=== PATIENT | female | born 1955 | race Caucasian/White ===

== ENCOUNTER 2018-12-12 13:24 | Outpatient (RCR) | payer BC ==
[~2018-12-12] VITALS: Ht 157.5 cm; Wt 72.6 kg
[2018-12-12 13:50] LABS: BASOPHILS % (AUTO) 0 % (0-10); EOSINOPHILS # (AUTO) 0.2 10^3/uL (0.0-0.3); EOSINOPHILS % (AUTO) 2 % (0-10); HEMATOCRIT 40 % (35-52); HEMOGLOBIN 12.5 G/DL (11.5-16.0); LYMPHOCYTES # (AUTO) 1.9 X 10^3 (1.0-4.0); LYMPHOCYTES % (AUTO) 25 % (12-44); MEAN CORPUSCULAR HEMOGLOBIN 28 PG (25-34); MEAN CORPUSCULAR HGB CONC 32 G/DL (32-36); MEAN CORPUSCULAR VOLUME 90 FL (80-99); MEAN PLATELET VOLUME 9.5 FL (7.4-10.4); MONOCYTES % (AUTO) 13 % (0-12); NEUTROPHILS # (AUTO) 4.6 X 10^3 (1.8-7.8); NEUTROPHILS % (AUTO) 61 % (42-75); PLATELET COUNT 235 10^3/uL (130-400); RED CELL DISTRIBUTION WIDTH 14.8 % (10.0-14.5); WHITE BLOOD COUNT 7.7 10^3/uL (4.3-11.0)
[2018-12-12 14:14] LABS: ALANINE AMINOTRANSFERASE 14 U/L (0-55); ALBUMIN 4.4 GM/DL (3.2-4.5); ALKALINE PHOSPHATASE 50 U/L (40-136); BILIRUBIN,TOTAL 0.3 MG/DL (0.1-1.0); BUN/CREATININE RATIO 27; CALCIUM 9.9 MG/DL (8.5-10.1); CARBON DIOXIDE 24 MMOL/L (21-32); CHLORIDE 107 MMOL/L (98-107); CREATININE SERUM 0.73 MG/DL (0.60-1.30); GFR ESTIMATED > 60; GLUCOSE 108 MG/DL (70-105); POTASSIUM 4.3 MMOL/L (3.6-5.0); SODIUM 141 MMOL/L (135-145); TOTAL PROTEIN 7.5 GM/DL (6.4-8.2)
[2018-12-12] MEDS ORDERED: PEMBROLIZUMAB 200 MG in NS (IVPB) CANCER CENTER 50 ML IV SCH (14:30)
[2018-12-12] MEDS ORDERED: NS IV 500 ML (CANCER CENTER) IV SCH (14:45)
== END 2019-01-02 13:51 | disposition home or self-care (01) ==
LOC: ONC 13:24
PROVIDERS: ATTEND Internal Medicine Hematology & Oncology
DX: Z51.11 Encounter for antineoplastic chemotherapy (principal); C18.1 Malignant neoplasm of appendix; C79.61 Secondary malignant neoplasm of right ovary; C79.62 Secondary malignant neoplasm of left ovary; C78.6 Secondary malignant neoplasm of retroperitoneum and peritoneum; I10 Essential (primary) hypertension; Z86.718 Personal history of other venous thrombosis and embolism; Z79.01 Long term (current) use of anticoagulants; Z79.899 Other long term (current) drug therapy
CPT/HCPCS: 36591; 80053; 82378; 84443; 85025; 86304; 96413; 99214

== ENCOUNTER 2019-03-27 13:43 | Outpatient (RCR) | payer BC, MEDICARE ==
[2019-01-02 14:11] LABS: BASOPHILS % (AUTO) 0 % (0-10); EOSINOPHILS # (AUTO) 0.1 10^3/uL (0.0-0.3); EOSINOPHILS % (AUTO) 2 % (0-10); HEMATOCRIT 37 % (35-52); LYMPHOCYTES # (AUTO) 1.6 X 10^3 (1.0-4.0); LYMPHOCYTES % (AUTO) 22 % (12-44); MEAN CORPUSCULAR HEMOGLOBIN 29 PG (25-34); MEAN CORPUSCULAR HGB CONC 32 G/DL (32-36); MEAN CORPUSCULAR VOLUME 90 FL (80-99); MEAN PLATELET VOLUME 9.3 FL (7.4-10.4); MONOCYTES # (AUTO) 0.7 X 10^3 (0.0-1.0); MONOCYTES % (AUTO) 10 % (0-12); NEUTROPHILS # (AUTO) 4.8 X 10^3 (1.8-7.8); NEUTROPHILS % (AUTO) 66 % (42-75); PLATELET COUNT 232 10^3/uL (130-400); RED CELL DISTRIBUTION WIDTH 14.7 % (10.0-14.5); WHITE BLOOD COUNT 7.3 10^3/uL (4.3-11.0)
[2019-01-02 14:34] LABS: ALANINE AMINOTRANSFERASE 15 U/L (0-55); ALBUMIN 4.2 GM/DL (3.2-4.5); ALKALINE PHOSPHATASE 46 U/L (40-136); BILIRUBIN,TOTAL 0.4 MG/DL (0.1-1.0); BUN/CREATININE RATIO 29; CARBON DIOXIDE 23 MMOL/L (21-32); CHLORIDE 110 MMOL/L (98-107); CREATININE SERUM 0.69 MG/DL (0.60-1.30); GFR ESTIMATED > 60; GLUCOSE 133 MG/DL (70-105); POTASSIUM 3.8 MMOL/L (3.6-5.0); SODIUM 142 MMOL/L (135-145)
[2019-01-23 13:34] LABS: BASOPHILS % (AUTO) 0 % (0-10); EOSINOPHILS # (AUTO) 0.1 10^3/uL (0.0-0.3); EOSINOPHILS % (AUTO) 2 % (0-10); HEMATOCRIT 38 % (35-52); LYMPHOCYTES # (AUTO) 1.6 X 10^3 (1.0-4.0); LYMPHOCYTES % (AUTO) 23 % (12-44); MEAN CORPUSCULAR HEMOGLOBIN 29 PG (25-34); MEAN CORPUSCULAR HGB CONC 32 G/DL (32-36); MEAN CORPUSCULAR VOLUME 90 FL (80-99); MEAN PLATELET VOLUME 9.1 FL (7.4-10.4); MONOCYTES # (AUTO) 0.9 X 10^3 (0.0-1.0); MONOCYTES % (AUTO) 12 % (0-12); NEUTROPHILS # (AUTO) 4.5 X 10^3 (1.8-7.8); NEUTROPHILS % (AUTO) 63 % (42-75); PLATELET COUNT 224 10^3/uL (130-400); RED CELL DISTRIBUTION WIDTH 14.4 % (10.0-14.5); WHITE BLOOD COUNT 7.1 10^3/uL (4.3-11.0)
[2019-01-23 13:58] LABS: ALANINE AMINOTRANSFERASE 16 U/L (0-55); ALBUMIN 4.1 GM/DL (3.2-4.5); ALKALINE PHOSPHATASE 42 U/L (40-136); BILIRUBIN,TOTAL 0.3 MG/DL (0.1-1.0); BUN/CREATININE RATIO 27; CALCIUM 9.3 MG/DL (8.5-10.1); CARBON DIOXIDE 25 MMOL/L (21-32); CHLORIDE 107 MMOL/L (98-107); CREATININE SERUM 0.77 MG/DL (0.60-1.30); GFR ESTIMATED > 60; GLUCOSE 94 MG/DL (70-105); POTASSIUM 4.2 MMOL/L (3.6-5.0); SODIUM 140 MMOL/L (135-145)
[2019-02-13 14:47] LABS: BASOPHILS % (AUTO) 0 % (0-10); EOSINOPHILS # (AUTO) 0.1 10^3/uL (0.0-0.3); EOSINOPHILS % (AUTO) 2 % (0-10); HEMATOCRIT 38 % (35-52); HEMOGLOBIN 12.3 G/DL (11.5-16.0); LYMPHOCYTES # (AUTO) 1.5 X 10^3 (1.0-4.0); LYMPHOCYTES % (AUTO) 23 % (12-44); MEAN CORPUSCULAR HEMOGLOBIN 29 PG (25-34); MEAN CORPUSCULAR HGB CONC 33 G/DL (32-36); MEAN CORPUSCULAR VOLUME 89 FL (80-99); MEAN PLATELET VOLUME 9.7 FL (7.4-10.4); MONOCYTES # (AUTO) 0.8 X 10^3 (0.0-1.0); MONOCYTES % (AUTO) 13 % (0-12); NEUTROPHILS # (AUTO) 4.2 X 10^3 (1.8-7.8); NEUTROPHILS % (AUTO) 63 % (42-75); PLATELET COUNT 239 10^3/uL (130-400); RED CELL DISTRIBUTION WIDTH 14.6 % (10.0-14.5); WHITE BLOOD COUNT 6.7 10^3/uL (4.3-11.0)
[2019-02-13 15:07] LABS: ALANINE AMINOTRANSFERASE 18 U/L (0-55); ALBUMIN 4.2 GM/DL (3.2-4.5); ALKALINE PHOSPHATASE 45 U/L (40-136); BILIRUBIN,TOTAL 0.4 MG/DL (0.1-1.0); BUN/CREATININE RATIO 28; CALCIUM 9.5 MG/DL (8.5-10.1); CARBON DIOXIDE 22 MMOL/L (21-32); CHLORIDE 108 MMOL/L (98-107); CREATININE SERUM 0.79 MG/DL (0.60-1.30); GFR ESTIMATED > 60; GLUCOSE 109 MG/DL (70-105); SODIUM 139 MMOL/L (135-145); TOTAL PROTEIN 7.2 GM/DL (6.4-8.2)
[2019-03-06 15:02] LABS: BASOPHILS % (AUTO) 0 % (0-10); EOSINOPHILS # (AUTO) 0.2 10^3/uL (0.0-0.3); EOSINOPHILS % (AUTO) 3 % (0-10); HEMATOCRIT 37 % (35-52); HEMOGLOBIN 11.9 G/DL (11.5-16.0); LYMPHOCYTES # (AUTO) 1.6 X 10^3 (1.0-4.0); LYMPHOCYTES % (AUTO) 24 % (12-44); MEAN CORPUSCULAR HEMOGLOBIN 29 PG (25-34); MEAN CORPUSCULAR HGB CONC 32 G/DL (32-36); MEAN CORPUSCULAR VOLUME 89 FL (80-99); MEAN PLATELET VOLUME 9.2 FL (7.4-10.4); MONOCYTES # (AUTO) 0.7 X 10^3 (0.0-1.0); MONOCYTES % (AUTO) 10 % (0-12); NEUTROPHILS # (AUTO) 4.3 X 10^3 (1.8-7.8); NEUTROPHILS % (AUTO) 63 % (42-75); PLATELET COUNT 245 10^3/uL (130-400); RED CELL DISTRIBUTION WIDTH 14.6 % (10.0-14.5); WHITE BLOOD COUNT 6.9 10^3/uL (4.3-11.0)
[2019-03-06 15:22] LABS: ALANINE AMINOTRANSFERASE 16 U/L (0-55); ALBUMIN 4.1 GM/DL (3.2-4.5); ALKALINE PHOSPHATASE 51 U/L (40-136); BILIRUBIN,TOTAL 0.3 MG/DL (0.1-1.0); BUN/CREATININE RATIO 24; CALCIUM 9.4 MG/DL (8.5-10.1); CARBON DIOXIDE 23 MMOL/L (21-32); CHLORIDE 110 MMOL/L (98-107); CREATININE SERUM 0.79 MG/DL (0.60-1.30); GFR ESTIMATED > 60; GLUCOSE 143 MG/DL (70-105); POTASSIUM 3.7 MMOL/L (3.6-5.0); SODIUM 141 MMOL/L (135-145); TOTAL PROTEIN 6.9 GM/DL (6.4-8.2)
[~2019-03-27] VITALS: Ht 157.5 cm; Wt 73.5 kg
[~2019-03-27 13:43] MED LIST: NS IV 500 ML (CANCER CENTER) IV SCH; PEMBROLIZUMAB 200 MG in NS (IVPB) CANCER CENTER 50 ML IV SCH
[2019-03-27 14:12] LABS: BASOPHILS % (AUTO) 0 % (0-10); EOSINOPHILS # (AUTO) 0.2 10^3/uL (0.0-0.3); EOSINOPHILS % (AUTO) 3 % (0-10); HEMATOCRIT 38 % (35-52); HEMOGLOBIN 12.3 G/DL (11.5-16.0); LYMPHOCYTES # (AUTO) 1.7 X 10^3 (1.0-4.0); LYMPHOCYTES % (AUTO) 24 % (12-44); MEAN CORPUSCULAR HEMOGLOBIN 29 PG (25-34); MEAN CORPUSCULAR HGB CONC 32 G/DL (32-36); MEAN CORPUSCULAR VOLUME 90 FL (80-99); MEAN PLATELET VOLUME 9.6 FL (7.4-10.4); MONOCYTES # (AUTO) 0.8 X 10^3 (0.0-1.0); MONOCYTES % (AUTO) 11 % (0-12); NEUTROPHILS # (AUTO) 4.6 X 10^3 (1.8-7.8); NEUTROPHILS % (AUTO) 63 % (42-75); PLATELET COUNT 252 10^3/uL (130-400); RED CELL DISTRIBUTION WIDTH 14.4 % (10.0-14.5); WHITE BLOOD COUNT 7.3 10^3/uL (4.3-11.0)
[2019-03-27 14:32] LABS: ALANINE AMINOTRANSFERASE 15 U/L (0-55); ALBUMIN 4.4 GM/DL (3.2-4.5); ALKALINE PHOSPHATASE 47 U/L (40-136); BILIRUBIN,TOTAL 0.3 MG/DL (0.1-1.0); BUN/CREATININE RATIO 24; CALCIUM 9.7 MG/DL (8.5-10.1); CARBON DIOXIDE 22 MMOL/L (21-32); CHLORIDE 107 MMOL/L (98-107); CREATININE SERUM 0.85 MG/DL (0.60-1.30); GFR ESTIMATED > 60; GLUCOSE 108 MG/DL (70-105); POTASSIUM 4.5 MMOL/L (3.6-5.0); SODIUM 140 MMOL/L (135-145); TOTAL PROTEIN 7.4 GM/DL (6.4-8.2)
== END 2019-04-02 | disposition home or self-care (01) ==
LOC: ONC 13:43
PROVIDERS: ATTEND Internal Medicine Hematology & Oncology
DX: Z51.11 Encounter for antineoplastic chemotherapy (principal); C18.1 Malignant neoplasm of appendix; C79.61 Secondary malignant neoplasm of right ovary; C79.62 Secondary malignant neoplasm of left ovary; C78.6 Secondary malignant neoplasm of retroperitoneum and peritoneum; Z86.718 Personal history of other venous thrombosis and embolism; Z79.01 Long term (current) use of anticoagulants; Z79.899 Other long term (current) drug therapy
CPT/HCPCS: 36591; 80053; 82378; 84443; 85025; 96413

== ENCOUNTER → 2019-03-27 | Outpatient (CLI) | payer BC, MEDICARE ==
--- NOTE | 2019-03-27 16:51 | Diagnostic Imaging Report ---
INDICATION: Shortness of breath. PA and lateral chest. FINDINGS: There is scoliosis of the thoracic spine convex to the right. Heart size and pulmonary vascularity are normal. Lungs are clear. There are no effusions or pneumothoraces. There is a right subclavian central line with the tip projecting over the right atrium. IMPRESSION: No acute abnormalities in the chest. Dictated by: Dictated on workstation # [id number]
== END ==
LOC: RAD 15:11
PROVIDERS: ATTEND Nurse Practitioner Adult Health
DX: R06.02 Shortness of breath (principal)
CPT/HCPCS: 71046

== ENCOUNTER → 2019-05-17 | Outpatient (CLI) | payer BC, MEDICARE ==
[~2019-05-17] MED LIST changes: +BARIUM SUSPENSION 2.1% (VANILLA SILQ) 450 ML PO ONE; +CATHETER FLUSH 10 ML SYR IV PRN; +HOLD METFORMIN - RECEIVED CONTRAST 20 ML VIAL IV SCH; +IOHEXOL 350 MG/ML 100 ML (OMNIPAQUE 350) VIAL IV ONE; +NS 100 ML (IVPB) BAG IV ONE; -NS IV 500 ML (CANCER CENTER) IV SCH; -PEMBROLIZUMAB 200 MG in NS (IVPB) CANCER CENTER 50 ML IV SCH
--- NOTE | 2019-05-17 14:43 | Diagnostic Imaging Report ---
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 TECHNIQUE: Axial imaging through the neck, chest, abdomen and pelvis was performed after the administration of intravenous contrast. COMPARISON: Patient's outside study from [facility] was only partially submitted. No axial imaging was submitted, therefore comparisons will be difficult. In addition, outside reports are not available. FINDINGS: CT neck: The visualized intracranial structures are unremarkable. The posterior nasopharynx and oropharynx are unremarkable. Parapharyngeal fat planes are preserved. The epiglottis and larynx are unremarkable. Thyroid is heterogeneous. There is hyperdense nodule in the right lobe measuring 10 mm and a hypodense nodule in left lobe 8 mm seen. The submandibular and parotid glands appear to be symmetric bilaterally. No definite cervical lymphadenopathy is seen. No fluid collections are identified. IMPRESSION: Enlarged thyroid. In comparing with patient's coronal reconstructions on prior study, this appears to be very similar to prior exam. No cervical lymphadenopathy is seen. CT chest: A right chest wall port is noted. Abnormal soft tissue left supraclavicular region is noted measuring 3.6 x 2.3 cm. This appears to have been present on prior study and is similar. No axillary lymphadenopathy is detected. No mediastinal or hilar lymphadenopathy is detected. No pericardial or pleural fluid is identified. There is some scarring or atelectasis in the lingula and left lower lobe as well as right middle lobe. No parenchymal mass is detected. IMPRESSION: Left supraclavicular soft tissue, stable when compared with outside study from 09/05/2018. No mediastinal or hilar lymphadenopathy or evidence of pulmonary metastatic disease is detected. CT abdomen and pelvis: Numerous low-density and partially calcified masses throughout the liver are again noted. There appears to have been decrease in size of all the liver lesions when compared with prior exam. The largest lesion is anteriorly in the left lobe measuring 2.3 cm transverse. This measured approximately 3.4 cm on prior exam. Numerous additional lesions also show decrease in size. Pancreas and spleen are unremarkable. No adrenal mass is identified. The kidneys are unremarkable. Aorta is not aneurysmal. Abnormal soft tissue with calcifications involving the retroperitoneum centrally is again noted. When comparing coronal reformations, this appears to be very similar. Small and large bowel loops are normal caliber. A partially calcified mass in the right abdomen medial to the ascending colon appears stable. There is no ascites. There is sigmoid diverticulosis but no evidence of acute diverticulitis. No inguinal or iliac lymphadenopathy is seen. Bladder is decompressed. Bony structures again demonstrate multiple sclerotic lesions in the lower thoracic and lumbar spine, stable when compared with prior exam. IMPRESSION: Overall significant improvement in numerous partially calcified hepatic metastases when compared with outside CT from 09/05/2018. Retroperitoneal partially calcified lymphadenopathy and right abdominal mass appear to be stable. No new abnormality is detected. Dictated by: Dictated on workstation # [id number]
== END ==
LOC: RAD 12:42
PROVIDERS: ATTEND Nurse Practitioner Adult Health
DX: Z01.89 Encounter for other specified special examinations (principal); C79.61 Secondary malignant neoplasm of right ovary; C78.6 Secondary malignant neoplasm of retroperitoneum and peritoneum; C18.1 Malignant neoplasm of appendix; C78.7 Secondary malignant neoplasm of liver and intrahepatic bile duct; R59.0 Localized enlarged lymph nodes; R19.00 Intra-abdominal and pelvic swelling, mass and lump, unspecified site
CPT/HCPCS: 70491; 71260; 74176

== ENCOUNTER 2019-07-10 13:53 | Outpatient (RCR) | payer BC, MEDICARE ==
[2019-04-17 14:25] LABS: BASOPHILS % (AUTO) 0 % (0-10); EOSINOPHILS # (AUTO) 0.2 10^3/uL (0.0-0.3); EOSINOPHILS % (AUTO) 2 % (0-10); HEMATOCRIT 37 % (35-52); HEMOGLOBIN 11.8 G/DL (11.5-16.0); LYMPHOCYTES # (AUTO) 1.6 X 10^3 (1.0-4.0); LYMPHOCYTES % (AUTO) 24 % (12-44); MEAN CORPUSCULAR HEMOGLOBIN 29 PG (25-34); MEAN CORPUSCULAR HGB CONC 32 G/DL (32-36); MEAN CORPUSCULAR VOLUME 90 FL (80-99); MEAN PLATELET VOLUME 9.3 FL (7.4-10.4); MONOCYTES # (AUTO) 0.7 X 10^3 (0.0-1.0); MONOCYTES % (AUTO) 11 % (0-12); NEUTROPHILS # (AUTO) 4.2 X 10^3 (1.8-7.8); NEUTROPHILS % (AUTO) 63 % (42-75); PLATELET COUNT 235 10^3/uL (130-400); RED CELL DISTRIBUTION WIDTH 14.4 % (10.0-14.5); WHITE BLOOD COUNT 6.7 10^3/uL (4.3-11.0)
[2019-04-17 14:42] LABS: ALANINE AMINOTRANSFERASE 15 U/L (0-55); ALBUMIN 4.3 GM/DL (3.2-4.5); ALKALINE PHOSPHATASE 48 U/L (40-136); BILIRUBIN,TOTAL 0.4 MG/DL (0.1-1.0); BUN/CREATININE RATIO 25; CALCIUM 9.8 MG/DL (8.5-10.1); CARBON DIOXIDE 25 MMOL/L (21-32); CHLORIDE 106 MMOL/L (98-107); CREATININE SERUM 0.85 MG/DL (0.60-1.30); GFR ESTIMATED > 60; GLUCOSE 114 MG/DL (70-105); POTASSIUM 3.9 MMOL/L (3.6-5.0); SODIUM 139 MMOL/L (135-145); TOTAL PROTEIN 6.9 GM/DL (6.4-8.2)
[2019-05-08 15:04] LABS: BASOPHILS % (AUTO) 0 % (0-10); EOSINOPHILS # (AUTO) 0.2 10^3/uL (0.0-0.3); EOSINOPHILS % (AUTO) 2 % (0-10); HEMATOCRIT 38 % (35-52); LYMPHOCYTES # (AUTO) 1.7 X 10^3 (1.0-4.0); LYMPHOCYTES % (AUTO) 22 % (12-44); MEAN CORPUSCULAR HEMOGLOBIN 29 PG (25-34); MEAN CORPUSCULAR HGB CONC 32 G/DL (32-36); MEAN CORPUSCULAR VOLUME 90 FL (80-99); MEAN PLATELET VOLUME 9.6 FL (7.4-10.4); MONOCYTES # (AUTO) 0.9 X 10^3 (0.0-1.0); MONOCYTES % (AUTO) 11 % (0-12); NEUTROPHILS # (AUTO) 4.9 X 10^3 (1.8-7.8); NEUTROPHILS % (AUTO) 65 % (42-75); PLATELET COUNT 224 10^3/uL (130-400); RED CELL DISTRIBUTION WIDTH 14.2 % (10.0-14.5); WHITE BLOOD COUNT 7.6 10^3/uL (4.3-11.0)
[2019-05-08 15:29] LABS: ALANINE AMINOTRANSFERASE 14 U/L (0-55); ALBUMIN 4.2 GM/DL (3.2-4.5); ALKALINE PHOSPHATASE 52 U/L (40-136); BILIRUBIN,TOTAL 0.3 MG/DL (0.1-1.0); BUN/CREATININE RATIO 28; CALCIUM 9.1 MG/DL (8.5-10.1); CARBON DIOXIDE 23 MMOL/L (21-32); CHLORIDE 109 MMOL/L (98-107); CREATININE SERUM 0.92 MG/DL (0.60-1.30); GFR ESTIMATED > 60; GLUCOSE 111 MG/DL (70-105); SODIUM 141 MMOL/L (135-145)
[2019-05-29 14:01] LABS: BASOPHILS % (AUTO) 0 % (0-10); EOSINOPHILS # (AUTO) 0.2 10^3/uL (0.0-0.3); EOSINOPHILS % (AUTO) 2 % (0-10); HEMATOCRIT 39 % (35-52); HEMOGLOBIN 12.5 G/DL (11.5-16.0); LYMPHOCYTES # (AUTO) 1.9 X 10^3 (1.0-4.0); LYMPHOCYTES % (AUTO) 27 % (12-44); MEAN CORPUSCULAR HEMOGLOBIN 29 PG (25-34); MEAN CORPUSCULAR HGB CONC 32 G/DL (32-36); MEAN CORPUSCULAR VOLUME 90 FL (80-99); MEAN PLATELET VOLUME 9.9 FL (7.4-10.4); MONOCYTES # (AUTO) 0.9 X 10^3 (0.0-1.0); MONOCYTES % (AUTO) 13 % (0-12); NEUTROPHILS # (AUTO) 4.1 X 10^3 (1.8-7.8); NEUTROPHILS % (AUTO) 58 % (42-75); PLATELET COUNT 245 10^3/uL (130-400); RED CELL DISTRIBUTION WIDTH 14.5 % (10.0-14.5)
[2019-05-29 14:23] LABS: ALANINE AMINOTRANSFERASE 17 U/L (0-55); ALBUMIN 4.4 GM/DL (3.2-4.5); ALKALINE PHOSPHATASE 70 U/L (40-136); BILIRUBIN,TOTAL 0.4 MG/DL (0.1-1.0); BUN/CREATININE RATIO 19; CALCIUM 9.3 MG/DL (8.5-10.1); CARBON DIOXIDE 20 MMOL/L (21-32); CHLORIDE 107 MMOL/L (98-107); CREATININE SERUM 0.89 MG/DL (0.60-1.30); GFR ESTIMATED > 60; GLUCOSE 89 MG/DL (70-105); SODIUM 140 MMOL/L (135-145); TOTAL PROTEIN 7.2 GM/DL (6.4-8.2)
[2019-06-19 14:16] LABS: BASOPHILS % (AUTO) 0 % (0-10); EOSINOPHILS # (AUTO) 0.2 10^3/uL (0.0-0.3); EOSINOPHILS % (AUTO) 2 % (0-10); HEMATOCRIT 38 % (35-52); LYMPHOCYTES # (AUTO) 1.5 X 10^3 (1.0-4.0); LYMPHOCYTES % (AUTO) 24 % (12-44); MEAN CORPUSCULAR HEMOGLOBIN 29 PG (25-34); MEAN CORPUSCULAR HGB CONC 32 G/DL (32-36); MEAN CORPUSCULAR VOLUME 91 FL (80-99); MEAN PLATELET VOLUME 9.7 FL (7.4-10.4); MONOCYTES # (AUTO) 0.8 X 10^3 (0.0-1.0); MONOCYTES % (AUTO) 12 % (0-12); NEUTROPHILS # (AUTO) 3.9 X 10^3 (1.8-7.8); NEUTROPHILS % (AUTO) 61 % (42-75); PLATELET COUNT 221 10^3/uL (130-400); RED CELL DISTRIBUTION WIDTH 14.2 % (10.0-14.5); WHITE BLOOD COUNT 6.3 10^3/uL (4.3-11.0)
[2019-06-19 14:38] LABS: ALANINE AMINOTRANSFERASE 17 U/L (0-55); ALKALINE PHOSPHATASE 48 U/L (40-136); BILIRUBIN,TOTAL 0.3 MG/DL (0.1-1.0); BUN/CREATININE RATIO 21; CALCIUM 8.8 MG/DL (8.5-10.1); CARBON DIOXIDE 23 MMOL/L (21-32); CHLORIDE 111 MMOL/L (98-107); CREATININE SERUM 0.63 MG/DL (0.60-1.30); GFR ESTIMATED > 60; GLUCOSE 105 MG/DL (70-105); POTASSIUM 3.8 MMOL/L (3.6-5.0); SODIUM 143 MMOL/L (135-145); TOTAL PROTEIN 6.7 GM/DL (6.4-8.2)
[~2019-07-10 13:53] MED LIST changes: -BARIUM SUSPENSION 2.1% (VANILLA SILQ) 450 ML PO ONE; -CATHETER FLUSH 10 ML SYR IV PRN; -HOLD METFORMIN - RECEIVED CONTRAST 20 ML VIAL IV SCH; -IOHEXOL 350 MG/ML 100 ML (OMNIPAQUE 350) VIAL IV ONE; -NS 100 ML (IVPB) BAG IV ONE; +NS IV 500 ML (CANCER CENTER) IV SCH; +PEMBROLIZUMAB 200 MG in NS (IVPB) CANCER CENTER 50 ML IV SCH
[2019-07-10 14:09] LABS: BASOPHILS % (AUTO) 0 % (0-10); EOSINOPHILS # (AUTO) 0.2 10^3/uL (0.0-0.3); EOSINOPHILS % (AUTO) 3 % (0-10); HEMATOCRIT 38 % (35-52); HEMOGLOBIN 12.1 G/DL (11.5-16.0); LYMPHOCYTES # (AUTO) 1.3 X 10^3 (1.0-4.0); LYMPHOCYTES % (AUTO) 20 % (12-44); MEAN CORPUSCULAR HEMOGLOBIN 29 PG (25-34); MEAN CORPUSCULAR HGB CONC 32 G/DL (32-36); MEAN CORPUSCULAR VOLUME 90 FL (80-99); MEAN PLATELET VOLUME 9.4 FL (7.4-10.4); MONOCYTES % (AUTO) 15 % (0-12); NEUTROPHILS # (AUTO) 3.9 X 10^3 (1.8-7.8); NEUTROPHILS % (AUTO) 62 % (42-75); PLATELET COUNT 241 10^3/uL (130-400); RED CELL DISTRIBUTION WIDTH 14.3 % (10.0-14.5); WHITE BLOOD COUNT 6.3 10^3/uL (4.3-11.0)
[2019-07-10 14:36] LABS: ALANINE AMINOTRANSFERASE 19 U/L (0-55); ALKALINE PHOSPHATASE 51 U/L (40-136); BILIRUBIN,TOTAL 0.5 MG/DL (0.1-1.0); BUN/CREATININE RATIO 19; CALCIUM 9.1 MG/DL (8.5-10.1); CARBON DIOXIDE 22 MMOL/L (21-32); CHLORIDE 107 MMOL/L (98-107); CREATININE SERUM 0.72 MG/DL (0.60-1.30); GFR ESTIMATED > 60; GLUCOSE 90 MG/DL (70-105); POTASSIUM 3.9 MMOL/L (3.6-5.0); SODIUM 141 MMOL/L (135-145)
== END 2019-07-16 | disposition home or self-care (01) ==
LOC: ONC 13:53
PROVIDERS: ATTEND Internal Medicine Hematology & Oncology
DX: Z51.11 Encounter for antineoplastic chemotherapy (principal); C18.1 Malignant neoplasm of appendix; C79.61 Secondary malignant neoplasm of right ovary; C79.62 Secondary malignant neoplasm of left ovary; C78.6 Secondary malignant neoplasm of retroperitoneum and peritoneum; Z86.718 Personal history of other venous thrombosis and embolism; Z79.01 Long term (current) use of anticoagulants; Z79.899 Other long term (current) drug therapy
CPT/HCPCS: 36415; 36591; 80053; 82378; 83615; 84443; 85025; 96413

== ENCOUNTER → 2019-07-24 | Outpatient (CLI) | payer BC, MEDICARE ==
--- NOTE | 2019-07-25 15:45 | Diagnostic Imaging Report ---
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 TECHNIQUE: Serum blood glucose level at time of injection was 84 g/dL. The patient was administered 13.1 mCi of F-18 FDG intravenously in the right antecubital location, and PET imaging from the top of the skull to mid thighs was performed. Noncontrast CT was also performed for attenuation correction and anatomic correlation. COMPARISON: Correlation is made with outside PET/CT from [facility] on 05/05/2015. FINDINGS: Symmetric activity throughout the brain is identified. There is diffuse activity throughout both lobes of the thyroid gland. No discrete mass is identified. No mediastinal or hilar hypermetabolism is seen. No definite pulmonary parenchymal hypermetabolism is identified. A soft tissue mass with hypermetabolism in the low hepatis region is seen with SUV maximum of approximately 9.8. This appears to be partially calcified on the CT. There is also intense hypermetabolic central retroperitoneal lymphadenopathy with SUV max of approximately 5.4. This adenopathy is also partially calcified. This has significantly increased since prior CT/PET from 05/05/2015. There was an enlarged aortocaval node on that exam that showed mild uptake. There is mild uptake involving a right iliac node with SUV of approximately 2.7. No other suspicious abnormalities are seen. IMPRESSION: Hypermetabolic lymphadenopathy in the low hepatis and central retroperitoneum consistent with metastatic disease. This has increased when compared with outside PET/CT from 05/05/2015. Dictated by: Dictated on workstation # [id number]
== END ==
LOC: RAD 07:59
PROVIDERS: ATTEND Internal Medicine Hematology & Oncology
DX: Z01.89 Encounter for other specified special examinations (principal); C18.1 Malignant neoplasm of appendix; C78.6 Secondary malignant neoplasm of retroperitoneum and peritoneum; C79.61 Secondary malignant neoplasm of right ovary; R97.0 Elevated carcinoembryonic antigen [CEA]

== ENCOUNTER 2019-10-08 14:29 | Outpatient (RCR) | payer BC, MEDICARE ==
[2019-07-31 13:29] LABS: BASOPHILS % (AUTO) 0 % (0-10); EOSINOPHILS # (AUTO) 0.1 10^3/uL (0.0-0.3); EOSINOPHILS % (AUTO) 2 % (0-10); HEMATOCRIT 37 % (35-52); HEMOGLOBIN 11.9 G/DL (11.5-16.0); LYMPHOCYTES # (AUTO) 1.6 X 10^3 (1.0-4.0); LYMPHOCYTES % (AUTO) 27 % (12-44); MEAN CORPUSCULAR HEMOGLOBIN 29 PG (25-34); MEAN CORPUSCULAR HGB CONC 32 G/DL (32-36); MEAN CORPUSCULAR VOLUME 90 FL (80-99); MEAN PLATELET VOLUME 9.4 FL (7.4-10.4); MONOCYTES # (AUTO) 0.7 X 10^3 (0.0-1.0); MONOCYTES % (AUTO) 12 % (0-12); NEUTROPHILS # (AUTO) 3.5 X 10^3 (1.8-7.8); NEUTROPHILS % (AUTO) 60 % (42-75); PLATELET COUNT 249 10^3/uL (130-400); RED CELL DISTRIBUTION WIDTH 14.1 % (10.0-14.5); WHITE BLOOD COUNT 5.8 10^3/uL (4.3-11.0)
[2019-07-31 13:45] LABS: ALANINE AMINOTRANSFERASE 13 U/L (0-55); ALBUMIN 4.1 GM/DL (3.2-4.5); ALKALINE PHOSPHATASE 41 U/L (40-136); BILIRUBIN,TOTAL 0.4 MG/DL (0.1-1.0); BUN/CREATININE RATIO 19; CALCIUM 8.9 MG/DL (8.5-10.1); CARBON DIOXIDE 23 MMOL/L (21-32); CHLORIDE 108 MMOL/L (98-107); CREATININE SERUM 0.67 MG/DL (0.60-1.30); GFR ESTIMATED > 60; GLUCOSE 115 MG/DL (70-105); POTASSIUM 3.7 MMOL/L (3.6-5.0); SODIUM 142 MMOL/L (135-145); TOTAL PROTEIN 6.9 GM/DL (6.4-8.2)
[2019-10-04 15:24] LABS: BASOPHILS % (AUTO) 0 % (0-10); EOSINOPHILS # (AUTO) 0.1 10^3/uL (0.0-0.3); EOSINOPHILS % (AUTO) 1 % (0-10); HEMATOCRIT 38 % (35-52); HEMOGLOBIN 11.9 G/DL (11.5-16.0); LYMPHOCYTES % (AUTO) 25 % (12-44); MEAN CORPUSCULAR HEMOGLOBIN 28 PG (25-34); MEAN CORPUSCULAR HGB CONC 31 G/DL (32-36); MEAN CORPUSCULAR VOLUME 90 FL (80-99); MEAN PLATELET VOLUME 9.6 FL (7.4-10.4); MONOCYTES # (AUTO) 0.7 X 10^3 (0.0-1.0); MONOCYTES % (AUTO) 9 % (0-12); NEUTROPHILS # (AUTO) 5.1 X 10^3 (1.8-7.8); NEUTROPHILS % (AUTO) 65 % (42-75); PLATELET COUNT 251 10^3/uL (130-400); RED CELL DISTRIBUTION WIDTH 14.4 % (10.0-14.5); WHITE BLOOD COUNT 7.9 10^3/uL (4.3-11.0)
[2019-10-04 15:42] LABS: ALANINE AMINOTRANSFERASE 15 U/L (0-55); ALBUMIN 4.3 GM/DL (3.2-4.5); ALKALINE PHOSPHATASE 55 U/L (40-136); BILIRUBIN,TOTAL 0.3 MG/DL (0.1-1.0); BUN/CREATININE RATIO 30; CARBON DIOXIDE 21 MMOL/L (21-32); CHLORIDE 108 MMOL/L (98-107); CREATININE SERUM 0.76 MG/DL (0.60-1.30); GFR ESTIMATED > 60; GLUCOSE 119 MG/DL (70-105); POTASSIUM 4.3 MMOL/L (3.6-5.0); SODIUM 140 MMOL/L (135-145); TOTAL PROTEIN 7.2 GM/DL (6.4-8.2)
== END 2019-10-29 | disposition home or self-care (01) ==
LOC: ONC 14:29
PROVIDERS: ATTEND Internal Medicine Hematology & Oncology
DX: Z51.11 Encounter for antineoplastic chemotherapy (principal); C18.1 Malignant neoplasm of appendix; C79.61 Secondary malignant neoplasm of right ovary; C79.62 Secondary malignant neoplasm of left ovary; C78.6 Secondary malignant neoplasm of retroperitoneum and peritoneum; M41.9 Scoliosis, unspecified; Z79.01 Long term (current) use of anticoagulants; Z79.899 Other long term (current) drug therapy; Z90.49 Acquired absence of other specified parts of digestive tract; Z86.718 Personal history of other venous thrombosis and embolism
CPT/HCPCS: 36591; 80053; 82378; 83615; 85025; 99213

== ENCOUNTER → 2020-01-28 | Outpatient (CLI) | payer BC, MEDICARE ==
[~2020-01-28] MED LIST changes: +CATHETER FLUSH 10 ML SYR IV PRN; +HOLD METFORMIN - RECEIVED CONTRAST 20 ML VIAL IV SCH; +IOHEXOL 350 MG/ML 100 ML (OMNIPAQUE 350) VIAL IV ONE; +NS 100 ML (IVPB) BAG IV ONE; -NS IV 500 ML (CANCER CENTER) IV SCH; -PEMBROLIZUMAB 200 MG in NS (IVPB) CANCER CENTER 50 ML IV SCH
--- NOTE | 2020-01-28 14:37 | Diagnostic Imaging Report ---
PROCEDURE: CT Neck, Chest Abdomen and Pelvis with contrast, Abdomen and Pelvis without. TECHNIQUE: Multiple contiguous axial images were obtained through the neck, chest, abdomen, and pelvis after the uneventful bolus administration of intravenous contrast. Precontrast acquisitions through the abdomen and pelvis were performed. Sagittal and coronal reformations are then performed. Auto Exposure Controls were utilized during the CT exam to meet ALARA standards for radiation dose reduction. INDICATION: Metastases to the peritoneal cavity. Correlation is made with prior CT from 05/17/2019. CT NECK: The posterior nasopharynx and oropharynx are unremarkable. Parapharyngeal fat planes are preserved. Thyroid gland does demonstrate a low density nodule in the left lobe, is similar to prior exam. Hyperdense nodule right lobe is stable. Submandibular and parotid glands appears symmetric bilaterally. No cervical lymphadenopathy is detected. IMPRESSION: Stable bilateral thyroid nodules. No cervical lymphadenopathy is detected. CT CHEST: A right chest wall port remains in place with tip in the right atrium. Area of soft tissue density in the left medial supraclavicular region measures 3.7 x 1.7 cm compared with 3.6 x 2.3 cm. No axillary lymphadenopathy is detected. No mediastinal or hilar lymphadenopathy is detected. No pericardial or pleural fluid is detected. Pulmonary parenchyma evaluation is without evidence for discrete mass. There is some scarring or atelectasis in the lingula. No infiltrates are seen. A sclerotic foci in the lower thoracic and lumbar spine appear stable and suggestive of osteoblastic metastatic disease. IMPRESSION: Stable CT chest when compared to exam from 05/17/2019. CT abdomen and pelvis: Numerous partially calcified as well as low-density masses throughout the liver are again noted. Marker lesion left lobe anteriorly as well as a 2.07 is compared with 2.3 cm. Lesion in the right lobe measures 1.2 cm compared with 1.5 cm. Additional lesions appear to be smaller as well. Gallbladder is unremarkable. Pancreas and spleen are unremarkable. No adrenal mass is detected. A partially calcified central retroperitoneal lymphadenopathy is again noted. Calcified mass in the region of the mid right ureter measures 3.8 x 2.5 cm compared with 3.6 x 2.2 cm. This may create some impression upon the right ureter which is slightly dilated proximally. This was not present on prior exam. Kidneys are otherwise unremarkable. Aorta is of normal caliber. Bowel loops are nonobstructed. Sigmoid diverticulosis without diverticulitis. There is no free fluid or fluid collection. No inguinal or iliac lymphadenopathy is seen. Sclerotic lesions in the lumbar spine are again noted consistent with osteoblastic metastases. IMPRESSION: 1. Overall slight decrease in size of multiple mixed low density and calcified lesions within the liver since exam from 05/17/2019. 2. Partially calcified central retroperitoneal lymphadenopathy. A right sided partially calcified mass anterior to the right psoas musculature likely and impresses upon the mid right ureter and is producing mild hydronephrosis. Uncomplicated sigmoid diverticulosis. Dictated by: Dictated on workstation # [id number]
== END ==
LOC: RAD 13:00
PROVIDERS: ATTEND Internal Medicine Hematology & Oncology
DX: C18.1 Malignant neoplasm of appendix (principal); C78.6 Secondary malignant neoplasm of retroperitoneum and peritoneum; C79.61 Secondary malignant neoplasm of right ovary; C79.62 Secondary malignant neoplasm of left ovary; K57.30 Diverticulosis of large intestine without perforation or abscess without bleeding; N13.30 Unspecified hydronephrosis
CPT/HCPCS: 70491; 71260; 74178

== ENCOUNTER 2020-01-29 14:34 | Outpatient (RCR) | payer BC, MEDICARE ==
[2019-11-01 14:06] LABS: BASOPHILS % (AUTO) 0 % (0-10); EOSINOPHILS # (AUTO) 0.1 10^3/uL (0.0-0.3); EOSINOPHILS % (AUTO) 2 % (0-10); HEMATOCRIT 38 % (35-52); HEMOGLOBIN 11.9 G/DL (11.5-16.0); LYMPHOCYTES # (AUTO) 1.7 X 10^3 (1.0-4.0); LYMPHOCYTES % (AUTO) 26 % (12-44); MEAN CORPUSCULAR HEMOGLOBIN 28 PG (25-34); MEAN CORPUSCULAR HGB CONC 31 G/DL (32-36); MEAN CORPUSCULAR VOLUME 90 FL (80-99); MEAN PLATELET VOLUME 9.5 FL (7.4-10.4); MONOCYTES # (AUTO) 0.7 X 10^3 (0.0-1.0); MONOCYTES % (AUTO) 11 % (0-12); NEUTROPHILS % (AUTO) 60 % (42-75); PLATELET COUNT 251 10^3/uL (130-400); RED CELL DISTRIBUTION WIDTH 14.4 % (10.0-14.5); WHITE BLOOD COUNT 6.6 10^3/uL (4.3-11.0)
[2019-11-01 14:27] LABS: ALANINE AMINOTRANSFERASE 15 U/L (0-55); ALBUMIN 4.1 GM/DL (3.2-4.5); ALKALINE PHOSPHATASE 52 U/L (40-136); BILIRUBIN,TOTAL 0.3 MG/DL (0.1-1.0); BUN/CREATININE RATIO 32; CALCIUM 9.4 MG/DL (8.5-10.1); CARBON DIOXIDE 20 MMOL/L (21-32); CHLORIDE 110 MMOL/L (98-107); CREATININE SERUM 0.66 MG/DL (0.60-1.30); GFR ESTIMATED > 60; GLUCOSE 101 MG/DL (70-105); POTASSIUM 4.3 MMOL/L (3.6-5.0); SODIUM 142 MMOL/L (135-145); TOTAL PROTEIN 7.2 GM/DL (6.4-8.2)
[2019-11-19 09:35] LABS: BASOPHILS % (AUTO) 0 % (0-10); EOSINOPHILS # (AUTO) 0.1 10^3/uL (0.0-0.3); EOSINOPHILS % (AUTO) 2 % (0-10); HEMATOCRIT 36 % (35-52); HEMOGLOBIN 11.4 G/DL (11.5-16.0); LYMPHOCYTES # (AUTO) 1.1 X 10^3 (1.0-4.0); LYMPHOCYTES % (AUTO) 30 % (12-44); MEAN CORPUSCULAR HEMOGLOBIN 28 PG (25-34); MEAN CORPUSCULAR HGB CONC 32 G/DL (32-36); MEAN CORPUSCULAR VOLUME 89 FL (80-99); MONOCYTES # (AUTO) 0.2 X 10^3 (0.0-1.0); MONOCYTES % (AUTO) 4 % (0-12); NEUTROPHILS # (AUTO) 2.4 X 10^3 (1.8-7.8); NEUTROPHILS % (AUTO) 64 % (42-75); PLATELET COUNT 179 10^3/uL (130-400); RED CELL DISTRIBUTION WIDTH 13.6 % (10.0-14.5); WHITE BLOOD COUNT 3.7 10^3/uL (4.3-11.0)
[2019-11-19 09:59] LABS: ALANINE AMINOTRANSFERASE 15 U/L (0-55); ALKALINE PHOSPHATASE 46 U/L (40-136); BILIRUBIN,TOTAL 0.5 MG/DL (0.1-1.0); BUN/CREATININE RATIO 23; CALCIUM 8.9 MG/DL (8.5-10.1); CARBON DIOXIDE 25 MMOL/L (21-32); CHLORIDE 110 MMOL/L (98-107); CREATININE SERUM 0.73 MG/DL (0.60-1.30); GFR ESTIMATED > 60; GLUCOSE 107 MG/DL (70-105); SODIUM 141 MMOL/L (135-145); TOTAL PROTEIN 6.8 GM/DL (6.4-8.2)
[2019-12-03 14:08] LABS: BASOPHILS % (AUTO) 0 % (0-10); EOSINOPHILS % (AUTO) 1 % (0-10); HEMATOCRIT 36 % (35-52); HEMOGLOBIN 11.4 G/DL (11.5-16.0); LYMPHOCYTES # (AUTO) 1.2 X 10^3 (1.0-4.0); LYMPHOCYTES % (AUTO) 40 % (12-44); MEAN CORPUSCULAR HEMOGLOBIN 29 PG (25-34); MEAN CORPUSCULAR HGB CONC 32 G/DL (32-36); MEAN CORPUSCULAR VOLUME 91 FL (80-99); MEAN PLATELET VOLUME 9.1 FL (7.4-10.4); MONOCYTES % (AUTO) 32 % (0-12); NEUTROPHILS # (AUTO) 0.8 X 10^3 (1.8-7.8); NEUTROPHILS % (AUTO) 27 % (42-75); PLATELET COUNT 257 10^3/uL (130-400); RED CELL DISTRIBUTION WIDTH 15.9 % (10.0-14.5); WHITE BLOOD COUNT 3.1 10^3/uL (4.3-11.0)
[2019-12-03 14:32] LABS: ALANINE AMINOTRANSFERASE 16 U/L (0-55); ALKALINE PHOSPHATASE 53 U/L (40-136); BILIRUBIN,TOTAL 0.2 MG/DL (0.1-1.0); BUN/CREATININE RATIO 21; CALCIUM 9.1 MG/DL (8.5-10.1); CARBON DIOXIDE 27 MMOL/L (21-32); CHLORIDE 107 MMOL/L (98-107); CREATININE SERUM 0.82 MG/DL (0.60-1.30); GFR ESTIMATED > 60; GLUCOSE 109 MG/DL (70-105); SODIUM 141 MMOL/L (135-145); TOTAL PROTEIN 6.9 GM/DL (6.4-8.2)
[2019-12-17 11:05] LABS: BASOPHILS % (AUTO) 0 % (0-10); EOSINOPHILS % (AUTO) 0 % (0-10); HEMATOCRIT 35 % (35-52); HEMOGLOBIN 11.1 G/DL (11.5-16.0); LYMPHOCYTES % (AUTO) 35 % (12-44); MEAN CORPUSCULAR HEMOGLOBIN 29 PG (25-34); MEAN CORPUSCULAR HGB CONC 32 G/DL (32-36); MEAN CORPUSCULAR VOLUME 90 FL (80-99); MONOCYTES # (AUTO) 0.2 X 10^3 (0.0-1.0); MONOCYTES % (AUTO) 5 % (0-12); NEUTROPHILS # (AUTO) 1.8 X 10^3 (1.8-7.8); NEUTROPHILS % (AUTO) 59 % (42-75); PLATELET COUNT 167 10^3/uL (130-400); RED CELL DISTRIBUTION WIDTH 15.5 % (10.0-14.5)
[2019-12-31 14:05] LABS: BASOPHILS % (AUTO) 0 % (0-10); EOSINOPHILS # (AUTO) 0.1 10^3/uL (0.0-0.3); EOSINOPHILS % (AUTO) 1 % (0-10); HEMATOCRIT 36 % (35-52); HEMOGLOBIN 11.3 G/DL (11.5-16.0); LYMPHOCYTES # (AUTO) 1.7 X 10^3 (1.0-4.0); LYMPHOCYTES % (AUTO) 27 % (12-44); MEAN CORPUSCULAR HEMOGLOBIN 29 PG (25-34); MEAN CORPUSCULAR HGB CONC 31 G/DL (32-36); MEAN CORPUSCULAR VOLUME 94 FL (80-99); MEAN PLATELET VOLUME 8.9 FL (7.4-10.4); MONOCYTES # (AUTO) 1.2 X 10^3 (0.0-1.0); MONOCYTES % (AUTO) 18 % (0-12); NEUTROPHILS # (AUTO) 3.5 X 10^3 (1.8-7.8); NEUTROPHILS % (AUTO) 54 % (42-75); PLATELET COUNT 358 10^3/uL (130-400); RED CELL DISTRIBUTION WIDTH 17.7 % (10.0-14.5); WHITE BLOOD COUNT 6.4 10^3/uL (4.3-11.0)
[2019-12-31 14:28] LABS: ALANINE AMINOTRANSFERASE 13 U/L (0-55); ALBUMIN 3.9 GM/DL (3.2-4.5); ALKALINE PHOSPHATASE 60 U/L (40-136); BILIRUBIN,TOTAL 0.2 MG/DL (0.1-1.0); BUN/CREATININE RATIO 19; CALCIUM 8.9 MG/DL (8.5-10.1); CARBON DIOXIDE 25 MMOL/L (21-32); CHLORIDE 106 MMOL/L (98-107); CREATININE SERUM 0.73 MG/DL (0.60-1.30); GFR ESTIMATED > 60; GLUCOSE 111 MG/DL (70-105); SODIUM 141 MMOL/L (135-145)
[2020-01-14 10:45] LABS: BASOPHILS % (AUTO) 0 % (0-10); EOSINOPHILS % (AUTO) 1 % (0-10); HEMATOCRIT 34 % (35-52); HEMOGLOBIN 10.5 G/DL (11.5-16.0); LYMPHOCYTES # (AUTO) 1.3 X 10^3 (1.0-4.0); LYMPHOCYTES % (AUTO) 27 % (12-44); MEAN CORPUSCULAR HEMOGLOBIN 29 PG (25-34); MEAN CORPUSCULAR HGB CONC 31 G/DL (32-36); MEAN CORPUSCULAR VOLUME 92 FL (80-99); MEAN PLATELET VOLUME 9.2 FL (7.4-10.4); MONOCYTES # (AUTO) 0.3 X 10^3 (0.0-1.0); MONOCYTES % (AUTO) 7 % (0-12); NEUTROPHILS # (AUTO) 3.2 X 10^3 (1.8-7.8); NEUTROPHILS % (AUTO) 66 % (42-75); PLATELET COUNT 189 10^3/uL (130-400); RED CELL DISTRIBUTION WIDTH 17.4 % (10.0-14.5); WHITE BLOOD COUNT 4.9 10^3/uL (4.3-11.0)
[2020-01-14 10:59] LABS: CHLORIDE 107 MMOL/L (98-107); POTASSIUM 3.8 MMOL/L (3.6-5.0); SODIUM 141 MMOL/L (135-145)
[2020-01-14 11:00] LABS: CALCIUM 8.6 MG/DL (8.5-10.1); GLUCOSE 101 MG/DL (70-105)
[2020-01-14 11:02] LABS: CARBON DIOXIDE 24 MMOL/L (21-32)
[2020-01-14 11:04] LABS: CREATININE SERUM 0.72 MG/DL (0.60-1.30); GFR ESTIMATED > 60
[2020-01-14 11:05] LABS: BUN/CREATININE RATIO 22
[2020-01-28 12:59] LABS: BASOPHILS % (AUTO) 0 % (0-10); EOSINOPHILS # (AUTO) 0.1 10^3/uL (0.0-0.3); EOSINOPHILS % (AUTO) 1 % (0-10); HEMATOCRIT 39 % (35-52); HEMOGLOBIN 12.2 G/DL (11.5-16.0); LYMPHOCYTES # (AUTO) 1.7 X 10^3 (1.0-4.0); LYMPHOCYTES % (AUTO) 43 % (12-44); MEAN CORPUSCULAR HEMOGLOBIN 30 PG (25-34); MEAN CORPUSCULAR HGB CONC 32 G/DL (32-36); MEAN CORPUSCULAR VOLUME 95 FL (80-99); MEAN PLATELET VOLUME 9.1 FL (7.4-10.4); MONOCYTES # (AUTO) 0.8 X 10^3 (0.0-1.0); MONOCYTES % (AUTO) 21 % (0-12); NEUTROPHILS # (AUTO) 1.3 X 10^3 (1.8-7.8); NEUTROPHILS % (AUTO) 34 % (42-75); PLATELET COUNT 324 10^3/uL (130-400); RED CELL DISTRIBUTION WIDTH 18.9 % (10.0-14.5); WHITE BLOOD COUNT 3.9 10^3/uL (4.3-11.0)
[2020-01-28 13:19] LABS: ALANINE AMINOTRANSFERASE 12 U/L (0-55); ALBUMIN 4.3 GM/DL (3.2-4.5); ALKALINE PHOSPHATASE 57 U/L (40-136); BILIRUBIN,TOTAL 0.5 MG/DL (0.1-1.0); BUN/CREATININE RATIO 14; CALCIUM 9.2 MG/DL (8.5-10.1); CARBON DIOXIDE 21 MMOL/L (21-32); CHLORIDE 109 MMOL/L (98-107); CREATININE SERUM 0.66 MG/DL (0.60-1.30); GFR ESTIMATED > 60; GLUCOSE 100 MG/DL (70-105); POTASSIUM 3.8 MMOL/L (3.6-5.0); SODIUM 142 MMOL/L (135-145); TOTAL PROTEIN 6.7 GM/DL (6.4-8.2)
== END 2020-01-30 | disposition home or self-care (01) ==
LOC: ONC 14:34
PROVIDERS: ATTEND Internal Medicine Hematology & Oncology
DX: C18.1 Malignant neoplasm of appendix (principal); C79.61 Secondary malignant neoplasm of right ovary; C79.62 Secondary malignant neoplasm of left ovary; C78.6 Secondary malignant neoplasm of retroperitoneum and peritoneum; M41.9 Scoliosis, unspecified; Z79.01 Long term (current) use of anticoagulants; Z79.899 Other long term (current) drug therapy; Z90.49 Acquired absence of other specified parts of digestive tract; Z86.718 Personal history of other venous thrombosis and embolism
CPT/HCPCS: 36591; 80048; 80053; 82378; 83615; 85025; 96365; 99213

== ENCOUNTER 2020-03-27 13:08 | Outpatient (RCR) | payer BC, MEDICARE ==
[2020-02-28 14:11] LABS: BASOPHILS % (AUTO) 0 % (0-10); EOSINOPHILS # (AUTO) 0.1 10^3/uL (0.0-0.3); EOSINOPHILS % (AUTO) 2 % (0-10); HEMATOCRIT 35 % (35-52); LYMPHOCYTES # (AUTO) 1.1 X 10^3 (1.0-4.0); LYMPHOCYTES % (AUTO) 43 % (12-44); MEAN CORPUSCULAR HEMOGLOBIN 31 PG (25-34); MEAN CORPUSCULAR HGB CONC 32 G/DL (32-36); MEAN CORPUSCULAR VOLUME 99 FL (80-99); MONOCYTES # (AUTO) 0.4 X 10^3 (0.0-1.0); MONOCYTES % (AUTO) 17 % (0-12); NEUTROPHILS % (AUTO) 38 % (42-75); PLATELET COUNT 229 10^3/uL (130-400); WHITE BLOOD COUNT 2.6 10^3/uL (4.3-11.0)
[2020-02-28 14:31] LABS: ALANINE AMINOTRANSFERASE 13 U/L (0-55); ALBUMIN 4.1 GM/DL (3.2-4.5); ALKALINE PHOSPHATASE 45 U/L (40-136); BILIRUBIN,TOTAL 0.3 MG/DL (0.1-1.0); BUN/CREATININE RATIO 21; CALCIUM 9.3 MG/DL (8.5-10.1); CARBON DIOXIDE 25 MMOL/L (21-32); CHLORIDE 108 MMOL/L (98-107); CREATININE SERUM 0.71 MG/DL (0.60-1.30); GFR ESTIMATED > 60; GLUCOSE 111 MG/DL (70-105); POTASSIUM 4.2 MMOL/L (3.6-5.0); SODIUM 142 MMOL/L (135-145); TOTAL PROTEIN 6.9 GM/DL (6.4-8.2)
[2020-03-27 13:46] LABS: BASOPHILS % (AUTO) 0 % (0-10); EOSINOPHILS # (AUTO) 0.1 10^3/uL (0.0-0.3); EOSINOPHILS % (AUTO) 3 % (0-10); HEMATOCRIT 35 % (35-52); HEMOGLOBIN 10.9 G/DL (11.5-16.0); LYMPHOCYTES # (AUTO) 1.2 X 10^3 (1.0-4.0); LYMPHOCYTES % (AUTO) 62 % (12-44); MEAN CORPUSCULAR HEMOGLOBIN 32 PG (25-34); MEAN CORPUSCULAR HGB CONC 32 G/DL (32-36); MEAN CORPUSCULAR VOLUME 102 FL (80-99); MEAN PLATELET VOLUME 8.9 FL (7.4-10.4); MONOCYTES # (AUTO) 0.4 X 10^3 (0.0-1.0); MONOCYTES % (AUTO) 19 % (0-12); NEUTROPHILS # (AUTO) 0.3 X 10^3 (1.8-7.8); NEUTROPHILS % (AUTO) 17 % (42-75); PLATELET COUNT 216 10^3/uL (130-400); RED CELL DISTRIBUTION WIDTH 15.4 % (10.0-14.5); WHITE BLOOD COUNT 1.9 10^3/uL (4.3-11.0)
[2020-03-27 14:02] LABS: ALANINE AMINOTRANSFERASE 13 U/L (0-55); ALBUMIN 4.1 GM/DL (3.2-4.5); ALKALINE PHOSPHATASE 50 U/L (40-136); BILIRUBIN,TOTAL 0.3 MG/DL (0.1-1.0); BUN/CREATININE RATIO 17; CALCIUM 8.7 MG/DL (8.5-10.1); CARBON DIOXIDE 26 MMOL/L (21-32); CHLORIDE 111 MMOL/L (98-107); CREATININE SERUM 0.83 MG/DL (0.60-1.30); GFR ESTIMATED > 60; GLUCOSE 119 MG/DL (70-105); POTASSIUM 3.9 MMOL/L (3.6-5.0); SODIUM 141 MMOL/L (135-145); TOTAL PROTEIN 6.7 GM/DL (6.4-8.2)
[2020-04-21 09:50] LABS: BASOPHILS % (AUTO) 0 % (0-10); EOSINOPHILS # (AUTO) 0.1 10^3/uL (0.0-0.3); EOSINOPHILS % (AUTO) 2 % (0-10); HEMATOCRIT 36 % (35-52); HEMOGLOBIN 11.5 G/DL (11.5-16.0); LYMPHOCYTES % (AUTO) 16 % (12-44); MEAN CORPUSCULAR HEMOGLOBIN 32 PG (25-34); MEAN CORPUSCULAR HGB CONC 32 G/DL (32-36); MEAN CORPUSCULAR VOLUME 99 FL (80-99); MONOCYTES # (AUTO) 0.6 X 10^3 (0.0-1.0); MONOCYTES % (AUTO) 11 % (0-12); NEUTROPHILS # (AUTO) 4.3 X 10^3 (1.8-7.8); NEUTROPHILS % (AUTO) 71 % (42-75); PLATELET COUNT 199 10^3/uL (130-400); RED CELL DISTRIBUTION WIDTH 14.2 % (10.0-14.5)
[2020-04-21 10:07] LABS: ALANINE AMINOTRANSFERASE 12 U/L (0-55); ALBUMIN 3.9 GM/DL (3.2-4.5); ALKALINE PHOSPHATASE 44 U/L (40-136); BILIRUBIN,TOTAL 0.4 MG/DL (0.1-1.0); BUN/CREATININE RATIO 17; CALCIUM 8.7 MG/DL (8.5-10.1); CARBON DIOXIDE 22 MMOL/L (21-32); CHLORIDE 111 MMOL/L (98-107); CREATININE SERUM 0.64 MG/DL (0.60-1.30); GFR ESTIMATED > 60; GLUCOSE 95 MG/DL (70-105); POTASSIUM 4.1 MMOL/L (3.6-5.0); SODIUM 141 MMOL/L (135-145); TOTAL PROTEIN 6.7 GM/DL (6.4-8.2)
== END 2020-04-21 09:29 | disposition home or self-care (01) ==
LOC: ONC 13:08
PROVIDERS: ATTEND Internal Medicine Hematology & Oncology
DX: C18.1 Malignant neoplasm of appendix (principal); C79.61 Secondary malignant neoplasm of right ovary; C79.62 Secondary malignant neoplasm of left ovary; C78.6 Secondary malignant neoplasm of retroperitoneum and peritoneum; M41.9 Scoliosis, unspecified; Z79.01 Long term (current) use of anticoagulants; Z79.899 Other long term (current) drug therapy; Z90.49 Acquired absence of other specified parts of digestive tract; Z86.718 Personal history of other venous thrombosis and embolism
CPT/HCPCS: 80053; 82378; 83615; 85025; G0463; 36591

== ENCOUNTER 2020-06-16 12:57 | Outpatient (RCR) | payer BC, MEDICARE, OTHER ==
[2020-05-20 09:23] LABS: BASOPHILS % (AUTO) 0 % (0-10); EOSINOPHILS # (AUTO) 0.1 10^3/uL (0.0-0.3); EOSINOPHILS % (AUTO) 2 % (0-10); HEMATOCRIT 39 % (35-52); HEMOGLOBIN 12.3 G/DL (11.5-16.0); LYMPHOCYTES # (AUTO) 1.6 X 10^3 (1.0-4.0); LYMPHOCYTES % (AUTO) 30 % (12-44); MEAN CORPUSCULAR HEMOGLOBIN 31 PG (25-34); MEAN CORPUSCULAR HGB CONC 32 G/DL (32-36); MEAN CORPUSCULAR VOLUME 97 FL (80-99); MEAN PLATELET VOLUME 9.2 FL (7.4-10.4); MONOCYTES # (AUTO) 0.7 X 10^3 (0.0-1.0); MONOCYTES % (AUTO) 13 % (0-12); NEUTROPHILS # (AUTO) 2.9 X 10^3 (1.8-7.8); NEUTROPHILS % (AUTO) 54 % (42-75); PLATELET COUNT 197 10^3/uL (130-400); WHITE BLOOD COUNT 5.3 10^3/uL (4.3-11.0)
[2020-05-20 09:45] LABS: ALANINE AMINOTRANSFERASE 12 U/L (0-55); ALBUMIN 3.9 GM/DL (3.2-4.5); ALKALINE PHOSPHATASE 45 U/L (40-136); BILIRUBIN,TOTAL 0.3 MG/DL (0.1-1.0); BUN/CREATININE RATIO 25; CALCIUM 9.6 MG/DL (8.5-10.1); CARBON DIOXIDE 25 MMOL/L (21-32); CHLORIDE 108 MMOL/L (98-107); CREATININE SERUM 0.73 MG/DL (0.60-1.30); GFR ESTIMATED > 60; GLUCOSE 124 MG/DL (70-105); POTASSIUM 3.9 MMOL/L (3.6-5.0); SODIUM 141 MMOL/L (135-145); TOTAL PROTEIN 6.7 GM/DL (6.4-8.2)
[2020-06-16 13:16] LABS: BASOPHILS % (AUTO) 0 % (0-10); EOSINOPHILS # (AUTO) 0.1 10^3/uL (0.0-0.3); EOSINOPHILS % (AUTO) 1 % (0-10); HEMATOCRIT 38 % (35-52); LYMPHOCYTES # (AUTO) 1.9 X 10^3 (1.0-4.0); LYMPHOCYTES % (AUTO) 30 % (12-44); MEAN CORPUSCULAR HEMOGLOBIN 31 PG (25-34); MEAN CORPUSCULAR HGB CONC 32 G/DL (32-36); MEAN CORPUSCULAR VOLUME 96 FL (80-99); MEAN PLATELET VOLUME 9.3 FL (7.4-10.4); MONOCYTES # (AUTO) 0.7 X 10^3 (0.0-1.0); MONOCYTES % (AUTO) 11 % (0-12); NEUTROPHILS # (AUTO) 3.7 X 10^3 (1.8-7.8); NEUTROPHILS % (AUTO) 58 % (42-75); PLATELET COUNT 191 10^3/uL (130-400); WHITE BLOOD COUNT 6.4 10^3/uL (4.3-11.0)
[2020-06-16 13:42] LABS: ALANINE AMINOTRANSFERASE 13 U/L (0-55); ALKALINE PHOSPHATASE 51 U/L (40-136); BILIRUBIN,TOTAL 0.4 MG/DL (0.1-1.0); BUN/CREATININE RATIO 24; CALCIUM 9.1 MG/DL (8.5-10.1); CARBON DIOXIDE 24 MMOL/L (21-32); CHLORIDE 107 MMOL/L (98-107); CREATININE SERUM 0.72 MG/DL (0.60-1.30); GFR ESTIMATED > 60; GLUCOSE 89 MG/DL (70-105); POTASSIUM 4.1 MMOL/L (3.6-5.0); SODIUM 141 MMOL/L (135-145); TOTAL PROTEIN 7.2 GM/DL (6.4-8.2)
== END 2020-07-20 | disposition home or self-care (01) ==
LOC: ONC 12:57
PROVIDERS: ATTEND Internal Medicine Hematology & Oncology
DX: C18.1 Malignant neoplasm of appendix (principal); C79.61 Secondary malignant neoplasm of right ovary; C79.62 Secondary malignant neoplasm of left ovary; C78.6 Secondary malignant neoplasm of retroperitoneum and peritoneum; M41.9 Scoliosis, unspecified; Z79.01 Long term (current) use of anticoagulants; Z79.899 Other long term (current) drug therapy; Z90.49 Acquired absence of other specified parts of digestive tract; Z86.718 Personal history of other venous thrombosis and embolism
CPT/HCPCS: 36591; 80053; 82378; 83615; 85025

== ENCOUNTER 2020-09-29 09:13 | Outpatient (RCR) | payer MEDICARE, OTHER ==
[2020-08-04 10:09] LABS: BASOPHILS % (AUTO) 0 % (0-10); EOSINOPHILS # (AUTO) 0.1 10^3/uL (0.0-0.3); EOSINOPHILS % (AUTO) 1 % (0-10); HEMATOCRIT 39 % (35-52); HEMOGLOBIN 12.3 g/dL (11.5-16.0); LYMPHOCYTES # (AUTO) 1.6 10^3/uL (1.0-4.0); LYMPHOCYTES % (AUTO) 38 % (12-44); MEAN CORPUSCULAR HEMOGLOBIN 30 pg (25-34); MEAN CORPUSCULAR HGB CONC 32 g/dL (32-36); MEAN CORPUSCULAR VOLUME 96 fL (80-99); MEAN PLATELET VOLUME 9.3 fL (9.0-12.2); MONOCYTES # (AUTO) 0.6 10^3/uL (0.0-1.0); MONOCYTES % (AUTO) 13 % (0-12); NEUTROPHILS % (AUTO) 48 % (42-75); PLATELET COUNT 193 10^3/uL (130-400); WHITE BLOOD COUNT 4.1 10^3/uL (4.3-11.0)
[2020-08-04 11:40] LABS: ALANINE AMINOTRANSFERASE 14 U/L (0-55); ALBUMIN 4.2 GM/DL (3.2-4.5); ALKALINE PHOSPHATASE 48 U/L (40-136); BILIRUBIN,TOTAL 0.5 MG/DL (0.1-1.0); BUN/CREATININE RATIO 24; CARBON DIOXIDE 23 MMOL/L (21-32); CHLORIDE 108 MMOL/L (98-107); CREATININE SERUM 0.76 MG/DL (0.60-1.30); GFR ESTIMATED > 60; GLUCOSE 96 MG/DL (70-105); SODIUM 141 MMOL/L (135-145); TOTAL PROTEIN 7.3 GM/DL (6.4-8.2)
[2020-09-03 13:59] LABS: BASOPHILS % (AUTO) 0 % (0-10); EOSINOPHILS % (AUTO) 1 % (0-10); HEMATOCRIT 35 % (35-52); HEMOGLOBIN 11.3 g/dL (11.5-16.0); LYMPHOCYTES # (AUTO) 1.2 10^3/uL (1.0-4.0); LYMPHOCYTES % (AUTO) 43 % (12-44); MEAN CORPUSCULAR HEMOGLOBIN 31 pg (25-34); MEAN CORPUSCULAR HGB CONC 32 g/dL (32-36); MEAN CORPUSCULAR VOLUME 95 fL (80-99); MONOCYTES # (AUTO) 0.5 10^3/uL (0.0-1.0); MONOCYTES % (AUTO) 18 % (0-12); NEUTROPHILS % (AUTO) 37 % (42-75); PLATELET COUNT 188 10^3/uL (130-400); WHITE BLOOD COUNT 2.8 10^3/uL (4.3-11.0)
[2020-09-03 14:19] LABS: ALANINE AMINOTRANSFERASE 16 U/L (0-55); ALBUMIN 3.9 GM/DL (3.2-4.5); ALKALINE PHOSPHATASE 48 U/L (40-136); BILIRUBIN,TOTAL 0.3 MG/DL (0.1-1.0); BUN/CREATININE RATIO 20; CALCIUM 9.1 MG/DL (8.5-10.1); CARBON DIOXIDE 26 MMOL/L (21-32); CHLORIDE 107 MMOL/L (98-107); CREATININE SERUM 0.84 MG/DL (0.60-1.30); GFR ESTIMATED > 60; GLUCOSE 120 MG/DL (70-105); POTASSIUM 3.6 MMOL/L (3.6-5.0); SODIUM 143 MMOL/L (135-145); TOTAL PROTEIN 6.8 GM/DL (6.4-8.2)
[2020-09-29 09:37] LABS: BASOPHILS % (AUTO) 0 % (0-10); EOSINOPHILS # (AUTO) 0.1 10^3/uL (0.0-0.3); EOSINOPHILS % (AUTO) 2 % (0-10); HEMATOCRIT 35 % (35-52); HEMOGLOBIN 11.1 g/dL (11.5-16.0); LYMPHOCYTES # (AUTO) 1.2 10^3/uL (1.0-4.0); LYMPHOCYTES % (AUTO) 43 % (12-44); MEAN CORPUSCULAR HEMOGLOBIN 31 pg (25-34); MEAN CORPUSCULAR HGB CONC 32 g/dL (32-36); MEAN CORPUSCULAR VOLUME 98 fL (80-99); MEAN PLATELET VOLUME 9.4 fL (9.0-12.2); MONOCYTES # (AUTO) 0.5 10^3/uL (0.0-1.0); MONOCYTES % (AUTO) 17 % (0-12); NEUTROPHILS # (AUTO) 1.1 10^3/uL (1.8-7.8); NEUTROPHILS % (AUTO) 39 % (42-75); PLATELET COUNT 208 10^3/uL (130-400); WHITE BLOOD COUNT 2.7 10^3/uL (4.3-11.0)
[2020-09-29 09:59] LABS: ALANINE AMINOTRANSFERASE 17 U/L (0-55); ALBUMIN 3.9 GM/DL (3.2-4.5); ALKALINE PHOSPHATASE 46 U/L (40-136); BILIRUBIN,TOTAL 0.4 MG/DL (0.1-1.0); BUN/CREATININE RATIO 22; CALCIUM 8.6 MG/DL (8.5-10.1); CARBON DIOXIDE 26 MMOL/L (21-32); CHLORIDE 109 MMOL/L (98-107); CREATININE SERUM 0.79 MG/DL (0.60-1.30); GFR ESTIMATED > 60; GLUCOSE 108 MG/DL (70-105); SODIUM 141 MMOL/L (135-145); TOTAL PROTEIN 6.9 GM/DL (6.4-8.2)
== END 2020-10-13 16:32 | disposition home or self-care (01) ==
LOC: ONC 09:13
PROVIDERS: ATTEND Internal Medicine Hematology & Oncology
DX: C18.1 Malignant neoplasm of appendix (principal); C78.6 Secondary malignant neoplasm of retroperitoneum and peritoneum; C79.61 Secondary malignant neoplasm of right ovary; Z86.718 Personal history of other venous thrombosis and embolism
CPT/HCPCS: 36591; 80053; 82378; 83615; 85025

== ENCOUNTER → 2020-12-10 | Outpatient (CLI) | payer MEDICARE, OTHER ==
[~2020-12-10] MED LIST changes: -IOHEXOL 350 MG/ML 100 ML (OMNIPAQUE 350) VIAL IV ONE; +IOHEXOL 350 MG/ML 150 ML (OMNIPAQUE 350) VIAL IV ONE
--- NOTE | 2020-12-10 12:11 | Diagnostic Imaging Report ---
PROCEDURE: CT head with and without contrast. TECHNIQUE: Multiple contiguous axial images were obtained through the brain before and after the administration of intravenous contrast. Auto Exposure Controls were utilized during the CT exam to meet ALARA standards for radiation dose reduction. INDICATION: Malignant neoplasm of the appendix. COMPARISON: No prior head CT is available for comparison. FINDINGS: The ventricles and sulci are within normal limits. No sulcal effacement or midline shift is identified. No acute intra-axial or extra-axial hemorrhage is detected. Cisterns are patent. Visualized paranasal sinuses are clear. Postcontrast portion of the exam is unremarkable. No enhancing lesion is detected. IMPRESSION: Unremarkable pre and postcontrast CT of the brain. Dictated by: Dictated on workstation # [id number]
--- NOTE | 2020-12-10 13:53 | Diagnostic Imaging Report ---
PROCEDURE: CT Neck, Chest Abdomen and Pelvis with contrast, Abdomen and Pelvis without. TECHNIQUE: Multiple contiguous axial images were obtained through the neck, chest, abdomen, and pelvis after the uneventful bolus administration of intravenous contrast. Precontrast acquisitions through the abdomen and pelvis were performed. Sagittal and coronal reformations are then performed. Auto Exposure Controls were utilized during the CT exam to meet ALARA standards for radiation dose reduction. INDICATION: Malignant neoplasm of the appendix. FINDINGS: CT neck: The visualized intracranial structures are unremarkable. Posterior nasopharynx and oropharynx are unremarkable. Parapharyngeal fat planes are preserved. Heterogeneity to the thyroid gland with small left lobe and right lobe nodules are again noted similar to prior exam. Parotid and submandibular glands are unremarkable. No cervical lymphadenopathy is detected. IMPRESSION: Stable CT neck with contrast when compared with 01/28/2020. No cervical lymphadenopathy is identified. CT chest: Right chest wall port remains in place. Previously noted area of soft tissue density in the medial left supraclavicular location is much smaller on today's study measuring 19 mm x 12 mm compared with 37 mm x 17 mm on prior. No axillary lymphadenopathy is detected. There is no pericardial or pleural fluid identified. Parenchymal evaluation again demonstrates some scarring or atelectasis in the lingula. There is some linear scarring or atelectasis in both lower lobes. No parenchymal nodule or mass is detected. IMPRESSION: Decrease in size of soft tissue density in the left supraclavicular region when compared with prior CT from 01/28/2020. No new areas of lymphadenopathy are identified. There is no evidence of pulmonary metastatic disease. CT abdomen and pelvis: Multiple low-density lesions as well as partially calcified lesions in the liver again noted. The marker lesion in left lobe is decreased in size measuring 17 mm compared with 20 mm on prior. The right lobe lesion measures 9 mm compared with 12 mm on prior. Again additional lesions appear smaller as well. No new mass is detected. Gallbladder is unremarkable. Pancreas and spleen appears stable. No adrenal mass is detected. Left kidney is unremarkable. There is continued dilatation of right renal collecting system and right ureter, likely caused by calcified mass anterior to the right psoas muscle. This mass measures 4.3 x 2.8 cm compared with 3.8 x 2.6 cm on prior. Calcified lymphadenopathy in the retroperitoneum appears similar. Aorta is nonaneurysmal. Small and large bowel loops are normal caliber. There is extensive diverticulosis of the sigmoid colon but no evidence of acute diverticulitis. Bladder is decompressed. No definite pelvic lymphadenopathy is identified. IMPRESSION: 1. Decrease in size of multiple liver lesions when compared with exam from 01/28/2020. 2. Calcified mass in the right side of retroperitoneum again obstructing the right ureter. There is significant right-sided hydronephrosis. Mass does measure similar to perhaps slightly larger when compared with prior exam. No other new abnormality in the abdomen or pelvis is identified. Dictated by: Dictated on workstation # [id number]
== END ==
LOC: RAD FS 09:57
PROVIDERS: ATTEND Nurse Practitioner Adult Health
DX: C18.1 Malignant neoplasm of appendix (principal); C79.62 Secondary malignant neoplasm of left ovary; C78.6 Secondary malignant neoplasm of retroperitoneum and peritoneum; C79.61 Secondary malignant neoplasm of right ovary; K76.9 Liver disease, unspecified; N13.30 Unspecified hydronephrosis
CPT/HCPCS: 70470; 70491; 71260; 74178

== ENCOUNTER 2020-12-22 14:19 | Emergency (ER) | payer MEDICARE, OTHER ==
[~2020-12-22] VITALS: Ht 157 cm; Wt 68.0 kg
--- NOTE | 2020-12-22 15:02 | ED General ---
General Chief Complaint: General Problems/Pain Stated Complaint: UNABLE TO EAT, TIRED Nursing Triage Note: PT PRESENTS TO ED WITH COMPLAINTS OF NAUSEA, GENERAL WEAKNESS, MALAISE X 6 WEEKS. Nursing Sepsis Screen: No Definite Risk Source of Information: Patient Exam Limitations: No Limitations (REMY MILIAN MD) History of Present Illness Date Seen by Provider: Dec 22, 2020 Time Seen by Provider: 14:55 Timing/Duration: Constant Severity: Severe Associated Systoms: Loss of Appetite, Malaise, Nausea/Vomiting, Weakness (REMY MILIAN MD) Allergies and Home Medications Allergies Coded Allergies: No Known Drug Allergies (Unverified , 12/12/18) Home Medications Promethazine HCl 25 Mg Tablet, 25 MG PO Q6H PRN for NAUSEA/VOMITING Prescribed by: REMY MILIAN on 12/22/201721 Patient Home Medication List Home Medication List Reviewed: Yes (REMY MILIAN MD) Review of Systems Review of Systems Constitutional: see HPI EENTM: no symptoms reported Respiratory: no symptoms reported Cardiovascular: no symptoms reported Gastrointestinal: loss of appetite, nausea Genitourinary: other (decreased output) Skin: no symptoms reported Psychiatric/Neurological: Weakness (generalized) (REMY MILIAN MD) Past Ompakjl-Gvbwso-Upjpuj Hx Patient Social History Alcohol Use: Denies Use Smoking Status: Never a Smoker Recent Infectious Disease Expo: No Recent Hopitalizations: No (REMY MILIAN MD) Seasonal Allergies Seasonal Allergies: No (REMY MILIAN MD) Past Medical History Surgeries: Yes (colon resection) Appendectomy, Hysterectomy Respiratory: No Cardiac: No Neurological: No Genitourinary: No Gastrointestinal: No Musculoskeletal: No Endocrine: No HEENT: No Cancer: Yes (appendix) Integumentary: No Blood Disorders: No (REMY MILIAN MD) Physical Exam Vital Signs Vital Signs - First Documented 12/22/20 14:30 Temp 36.9 Pulse 99 Resp 20 B/P (MAP) 137/79 (98) Pulse Ox 98 (JAMA ESPANA MD) Vital Signs Capillary Refill : Less Than 3 Seconds (REMY MILIAN MD) Height, Weight, BMI Height: '" Weight: lbs. oz. kg; 27.00 BMI Method: General Appearance: No Apparent Distress, Chronically ill Eyes: Bilateral Eye Normal Inspection, Bilateral Eye PERRL, Bilateral Eye EOMI HEENT: Other (dry oral mucosa) Neck: Normal Inspection, Supple Respiratory: Lungs Clear, Normal Breath Sounds, No Accessory Muscle Use, No Respiratory Distress Cardiovascular: Regular Rate, Rhythm, Normal Peripheral Pulses Gastrointestinal: Normal Bowel Sounds, Non Tender, Soft Extremity: Normal Capillary Refill, Normal Inspection, Normal Range of Motion, Non Tender Neurologic/Psychiatric: Alert, Oriented x3, No Motor/Sensory Deficits, Normal Mood/Affect Skin: Warm/Dry, Pallor, Other (poor skin turgor) (REMY MILIAN MD) Focused Exam Lactate Level 12/22/20 15:21: Lactic Acid Level 0.62 (JAMA ESPANA MD) Lactic Acid Level Laboratory Tests Test 12/22/20 15:21 Lactic Acid Level 0.62 MMOL/L (0.50-2.00) (JAMA ESPANA MD) Progress/Results/Core Measures Suspected Sepsis Recent Fever Within 48 Hours: No Infection Criteria Present: None New/Unexplained Altered Menta: No Sepsis Screen: No Definite Risk SIRS Temperature: Pulse: 99 Respiratory Rate: 20 Laboratory Tests 12/22/20 14:46: White Blood Count 10.1 Blood Pressure 137 /79 Mean: 98 12/22/20 15:21: Lactic Acid Level 0.62 Laboratory Tests 12/22/20 14:46: Creatinine 0.69, Platelet Count 383, Total Bilirubin 0.4 (REMY MILIAN MD) Results/Orders Lab Results Laboratory Tests Test 12/22/20 14:46 12/22/20 15:21 12/22/20 15:35 12/22/20 17:37 Range/Units White Blood Count 10.1 4.3-11.0 10^3/uL Red Blood Count 3.06 L 3.80-5.11 10^6/uL Hemoglobin 9.6 L 11.5-16.0 g/dL Hematocrit 30 L 35-52 % Mean Corpuscular Volume 99 80-99 fL Mean Corpuscular Hemoglobin 31 25-34 pg Mean Corpuscular Hemoglobin Concent 32 32-36 g/dL Red Cell Distribution Width 15.9 H 10.0-14.5 % Platelet Count 383 130-400 10^3/uL Mean Platelet Volume 9.1 9.0-12.2 fL Immature Granulocyte % (Auto) 2 % Neutrophils (%) (Auto) 78 H 42-75 % Lymphocytes (%) (Auto) 10 L 12-44 % Monocytes (%) (Auto) 10 0-12 % Eosinophils (%) (Auto) 1 0-10 % Basophils (%) (Auto) 0 0-10 % Neutrophils # (Auto) 7.8 1.8-7.8 10^3/uL Lymphocytes # (Auto) 1.0 1.0-4.0 10^3/uL Monocytes # (Auto) 1.0 0.0-1.0 10^3/uL Eosinophils # (Auto) 0.1 0.0-0.3 10^3/uL Basophils # (Auto) 0.0 0.0-0.1 10^3/uL Immature Granulocyte # (Auto) 0.2 H 0.0-0.1 10^3/uL Sodium Level 135 135-145 MMOL/L Potassium Level 4.0 3.6-5.0 MMOL/L Chloride Level 99 98-107 MMOL/L Carbon Dioxide Level 22 21-32 MMOL/L Anion Gap 14 5-14 MMOL/L Blood Urea Nitrogen 10 7-18 MG/DL Creatinine 0.69 0.60-1.30 MG/DL Estimat Glomerular Filtration Rate > 60 BUN/Creatinine Ratio 14 Glucose Level 87 70-105 MG/DL Calcium Level 8.4 L 8.5-10.1 MG/DL Corrected Calcium 9.2 8.5-10.1 MG/DL Magnesium Level 2.6 H 1.6-2.4 MG/DL Total Bilirubin 0.4 0.1-1.0 MG/DL Aspartate Amino Transf (AST/SGOT) 30 5-34 U/L Alanine Aminotransferase (ALT/SGPT) 20 0-55 U/L Alkaline Phosphatase 74 40-136 U/L Troponin I < 0.028 <0.028 NG/ML Total Protein 7.1 6.4-8.2 GM/DL Albumin 3.0 L 3.2-4.5 GM/DL Thyroid Stimulating Hormone (TSH) 1.54 0.35-4.94 UIU/ML Lactic Acid Level 0.62 0.50-2.00 MMOL/L Coronavirus 2019 (LOBO) Negative Negative Urine Color YELLOW Urine Clarity CLEAR Urine pH 6.0 5-9 Urine Specific [place] <=1.005 1.016-1.022 Urine Protein NEGATIVE NEGATIVE Urine Glucose (UA) NEGATIVE NEGATIVE Urine Ketones 1+ H NEGATIVE Urine Nitrite NEGATIVE NEGATIVE Urine Bilirubin NEGATIVE NEGATIVE Urine Urobilinogen 0.2 < = 1.0 MG/DL Urine Leukocyte Esterase TRACE H NEGATIVE Urine RBC (Auto) TRACE-I NEGATIVE Urine RBC 0-2 /HPF Urine WBC 5-10 H /HPF Urine Crystals PRESENT H /LPF Urine Amorphous Sediment RARE TERESITA URATES H /LPF Urine Bacteria FEW H /HPF Urine Casts NONE /LPF Urine Mucus NEGATIVE /LPF Urine Culture Indicated YES (JAMA ESPANA MD) Micro Results Microbiology 12/22/20 Urine Culture - Preliminary, Resulted Escherichia coli 12/22/20 Blood Culture - Preliminary, Resulted Escherichia coli See Comments (JAMA ESPANA MD) Vital Signs/I&O 12/22/20 12/22/20 14:30 17:35 Temp 36.9 Pulse 99 87 Resp 20 20 B/P (MAP) 137/79 (98) 110/57 Pulse Ox 98 98 (JAMA ESPANA MD) Vital Signs/I&O Capillary Refill : Less Than 3 Seconds (REMY MILIAN MD) Blood Pressure Mean: 98 Progress Note : Time: 17:18 Progress Note Patient is stating that she feels a little bit better. She has had 1 L of IV fluids. She states she feels a little bit more "awake". Her nausea is improved. She was given 12-1/2 mg of Phenergan IV. Patient is desirous of discharge at this time. I have reviewed her labs except for the urinalysis which has not been completed, all of her labs are reassuring and within normal limits. Chest x-ray is unremarkable save a little small left-sided pleural effusion. She has no clinical or objective findings concerning for sepsis. No concerning findings that would warrant a hospital admission at this time. She is coming back to the hospital tomorrow to see Dr. Calderon regarding a right kidney stent. Patient is strongly encouraged to follow-up with the cancer center. I did offer her a second liter of normal saline but the patient declines at this time and would rather be discharged. I will send a prescription of Phenergan to her home in [place] at [facility]. I have discussed all of the findings with the patient and her . She is comfortable with discharge. All questions are sought and answered. (REMY MILIAN MD) Progress Note : Time: 14:45 Progress Note Patient was contacted at this time (14:45, December 23, 2020) because a gram- negative swapnil was noted on the port culture. E. coli was also noted in the urine culture. Patient states that she is feeling a little better but still feels "out of it". I strongly recommended that she return to the emergency room for repeat evaluation as she may have a bacteremia. Patient expressed understanding and said she would "see what I can do". (JAMA ESPANA MD) Diagnostic Imaging Diagonstic Imaging: Xray Plain Films/CT/US/NM/MRI: chest Comments [facility] [place], [place] NAME: OLAF YANG [facility] REC#: [id number] PT STATUS: REG ER : 1955 PHYSICIAN: REMY MILIAN MD ADMIT DATE: 12/22/20/ER Draft Date of Exam:12/22/20 CHEST 1 VIEW, AP/PA ONLY INDICATION: sepsis COMPARISON: 03/27/2019. FINDINGS: Single frontal view of the chest demonstrates normal heart size and pulmonary vascularity. The lungs show small left basilar effusion, but are otherwise clear. There is no large effusion on the right. No pneumothorax is seen on either side. Right-sided Port-A-Cath is noted with tip in the right atrium. Osseous structures show no acute adverse interval change. IMPRESSION: 1. Small left basilar effusion. Dictated on workstation # [id number] Dict: 12/22/20 1701 Trans: 12/22/20 170 [id number] [id number] Interpreted by: MILLIE JOSUE MD Electronically signed by: (REMY MILIAN MD) Departure Impression Primary Impression: Generalized weakness Additional Impression: Nausea & vomiting Qualified Codes: R11.2 - Nausea with vomiting, unspecified Disposition: HOME, SELF-CARE Condition: Stable Departure-Patient Inst. Decision time for Depature: 17:20 (REMY MILIAN MD) Referrals: NO,LOCAL PHYSICIAN (PCP/Family) Primary Care Physician Patient Instructions: Nausea and Vomiting, Adult, Generalized Weakness (DC) Add. Discharge Instructions: Please drink plenty of fluids to stay well-hydrated. I have given you a prescription for Phenergan. This medication is used for nausea you can take it every 6 hours as needed. Continue your home daily medications otherwise. Please keep your follow-up appointments with your specialists. Return to the emergency department if you develop a fever over 100.4, have persistent vomiting, diarrhea, pain or any other emergent concerning symptoms. Scripts Promethazine HCl (Promethazine Tablet) 25 Mg Tablet 25 MG PO Q6H PRN for NAUSEA/VOMITING, #20 TAB Prov: REMY MILIAN MD 12/22/20 REMY MILIAN MD Dec 22, 2020 15:02 JAMA ESPANA MD Dec 23, 2020 14:47
[2020-12-22 15:05] LABS: BASOPHILS % (AUTO) 0 % (0-10); EOSINOPHILS # (AUTO) 0.1 10^3/uL (0.0-0.3); EOSINOPHILS % (AUTO) 1 % (0-10); HEMATOCRIT 30 % (35-52); HEMOGLOBIN 9.6 g/dL (11.5-16.0); LYMPHOCYTES % (AUTO) 10 % (12-44); MEAN CORPUSCULAR HEMOGLOBIN 31 pg (25-34); MEAN CORPUSCULAR HGB CONC 32 g/dL (32-36); MEAN CORPUSCULAR VOLUME 99 fL (80-99); MEAN PLATELET VOLUME 9.1 fL (9.0-12.2); MONOCYTES % (AUTO) 10 % (0-12); NEUTROPHILS # (AUTO) 7.8 10^3/uL (1.8-7.8); NEUTROPHILS % (AUTO) 78 % (42-75); PLATELET COUNT 383 10^3/uL (130-400); WHITE BLOOD COUNT 10.1 10^3/uL (4.3-11.0)
[2020-12-22 15:15] LABS: ALANINE AMINOTRANSFERASE 20 U/L (0-55); ALKALINE PHOSPHATASE 74 U/L (40-136); BILIRUBIN,TOTAL 0.4 MG/DL (0.1-1.0); BUN/CREATININE RATIO 14; CALCIUM 8.4 MG/DL (8.5-10.1); CARBON DIOXIDE 22 MMOL/L (21-32); CHLORIDE 99 MMOL/L (98-107); CREATININE SERUM 0.69 MG/DL (0.60-1.30); GFR ESTIMATED > 60; GLUCOSE 87 MG/DL (70-105); MAGNESIUM 2.6 MG/DL (1.6-2.4); SODIUM 135 MMOL/L (135-145); TOTAL PROTEIN 7.1 GM/DL (6.4-8.2)
[2020-12-22] MEDS ORDERED: NS IV 1000 ML 1,000 ML IV SCH (15:30)
[2020-12-22] MEDS ORDERED: PROMETHAZINE INJ 25 MG/ML (PHENERGAN) AMP IVP ONE (16:00)
--- NOTE | 2020-12-22 17:05 | Diagnostic Imaging Report ---
INDICATION: sepsis COMPARISON: 03/27/2019. FINDINGS: Single frontal view of the chest demonstrates normal heart size and pulmonary vascularity. The lungs show small left basilar effusion, but are otherwise clear. There is no large effusion on the right. No pneumothorax is seen on either side. Right-sided Port-A-Cath is noted with tip in the right atrium. Osseous structures show no acute adverse interval change. IMPRESSION: 1. Small left basilar effusion. Dictated by: Dictated on workstation # [id number]
[2020-12-22] MEDS ORDERED: PROM25TA14 PO (17:22)
[2020-12-22 17:35] VITALS: BP 110/57
[2020-12-22 17:48] LABS: BILIRUBIN,URINE NEGATIVE (NEGATIVE); CLARITY,URINE CLEAR; COLOR,URINE YELLOW; GLUCOSE, URINE (UA) NEGATIVE (NEGATIVE); KETONES,URINE 1+ (NEGATIVE); LEUKOCYTE ESTERASE ,URINE TRACE (NEGATIVE); NITRITE,URINE NEGATIVE (NEGATIVE); PROTEIN,URINE NEGATIVE (NEGATIVE)
[2020-12-22 18:00] LABS: AMORPHOUS SEDIMENT,UR RARE AMOR URATES /LPF; BACTERIA,URINE FEW /HPF; RBC,URINE 0-2 /HPF
== END 2020-12-22 17:35 | disposition home or self-care (01) ==
LOC: EDUNIT# 14:19 → ER 14:22
DX: R53.1 Weakness (principal); R11.2 Nausea with vomiting, unspecified; I10 Essential (primary) hypertension; Z20.822 Contact with and (suspected) exposure to COVID-19; Z85.038 Personal history of other malignant neoplasm of large intestine
CPT/HCPCS: 71045; 80053; 81000; 83605; 83735; 84443; 84484; 85025; 87040; 87077; 87088; 93005; 99284; U0002; 36415; 87635

== ENCOUNTER 2020-12-23 16:31 | Inpatient (IN) | payer MEDICARE, OTHER ==
[~2020-12-23] VITALS: Ht 157 cm; Wt 68.1 kg
[~2020-12-23 16:31] MED LIST changes: -CATHETER FLUSH 10 ML SYR IV PRN; -HOLD METFORMIN - RECEIVED CONTRAST 20 ML VIAL IV SCH; -IOHEXOL 350 MG/ML 150 ML (OMNIPAQUE 350) VIAL IV ONE; -NS 100 ML (IVPB) BAG IV ONE; +PROM25TA14 PO
--- NOTE | 2020-12-23 16:57 | Diagnostic Imaging Report ---
HISTORY: Sepsis. COMPARISON: 12/22/2020. TECHNIQUE: Frontal view of the chest. FINDINGS: Lung volumes are normal. There are airspace opacities in the left lung base which appear stable since the prior study. There may be a minimal left pleural effusion. There is no right effusion. There is no pneumothorax. The right Port-A-Cath is in the right atrium. The cardiac silhouette is stable in size. There is old post-traumatic deformity of the proximal right humerus. IMPRESSION: 1. Left basilar airspace opacities appear stable since the prior study, may represent atelectasis or infiltrate. There may be a minimal left pleural effusion. Dictated by: Dictated on workstation # [id number]
[2020-12-23 17:10] LABS: BASOPHILS % (AUTO) 0 % (0-10); EOSINOPHILS # (AUTO) 0.1 10^3/uL (0.0-0.3); EOSINOPHILS % (AUTO) 1 % (0-10); HEMATOCRIT 31 % (35-52); HEMOGLOBIN 9.8 g/dL (11.5-16.0); LYMPHOCYTES # (AUTO) 1.3 10^3/uL (1.0-4.0); LYMPHOCYTES % (AUTO) 11 % (12-44); MEAN CORPUSCULAR HEMOGLOBIN 32 pg (25-34); MEAN CORPUSCULAR HGB CONC 32 g/dL (32-36); MEAN CORPUSCULAR VOLUME 98 fL (80-99); MEAN PLATELET VOLUME 8.8 fL (9.0-12.2); MONOCYTES # (AUTO) 0.9 10^3/uL (0.0-1.0); MONOCYTES % (AUTO) 8 % (0-12); NEUTROPHILS # (AUTO) 9.6 10^3/uL (1.8-7.8); NEUTROPHILS % (AUTO) 79 % (42-75); PLATELET COUNT 405 10^3/uL (130-400); WHITE BLOOD COUNT 12.1 10^3/uL (4.3-11.0)
[2020-12-23 17:33] LABS: ALANINE AMINOTRANSFERASE 19 U/L (0-55); ALBUMIN 3.2 GM/DL (3.2-4.5); ALKALINE PHOSPHATASE 74 U/L (40-136); BILIRUBIN,TOTAL 0.3 MG/DL (0.1-1.0); BUN/CREATININE RATIO 12; CALCIUM 8.6 MG/DL (8.5-10.1); CARBON DIOXIDE 20 MMOL/L (21-32); CHLORIDE 100 MMOL/L (98-107); CREATININE SERUM 0.83 MG/DL (0.60-1.30); GFR ESTIMATED > 60; GLUCOSE 95 MG/DL (70-105); POTASSIUM 3.9 MMOL/L (3.6-5.0); SODIUM 137 MMOL/L (135-145); TOTAL PROTEIN 7.4 GM/DL (6.4-8.2)
[2020-12-23 17:45] LABS: INR 1.3 (0.8-1.4); PROTHROMBIN TIME PATIENT 16.9 SEC (12.2-14.7)
[2020-12-23] MEDS ORDERED: CEFEPIME INJECTION 2,000 MG in WATER (STERILE) FOR INJECTION 20 ML IV ONE (17:45)
[2020-12-23] MEDS ORDERED: LACTATED RINGERS 1,000 ML IV ONE (17:45)
--- NOTE | 2020-12-23 17:50 | ED General ---
General Chief Complaint: General Problems/Pain Stated Complaint: RE EVAL Nursing Triage Note: PT AMB TO [facility] PT HERE FOR EVAL, WAS INSTRUCTED TO COME TO ED D/T BLOOD CULTURE GROWING OUT GRAM - RODS FROM BC FROM PORT AND URINE GROWING OUT ECOLI. PT WAS SEEN IN ED YESTERDAY, PT STATES FEELING BETTER TODAY. Nursing Sepsis Screen: No Definite Risk Source of Information: Patient, Old Records Exam Limitations: No Limitations History of Present Illness Date Seen by Provider: Dec 23, 2020 Time Seen by Provider: 16:33 Initial Comments This 64-year-old woman presents to the emergency room at the direction of this ER provider. She was seen in the emergency room yesterday for weakness. A blood culture was drawn from her port which grew out a gram-negative swapnil. This seemed to correlate with the E. coli that was identified in her urine. She was advised to return to the emergency room for reevaluation. She had diarrhea and vomiting through yesterday which has improved this afternoon. She also states she feels "a little out of it". She has dysuria as well. She is afebrile. A COVID-19 test performed yesterday was negative. Unfortunately, a second blood culture was not drawn yesterday from a peripheral site. 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 Allergies and Home Medications Allergies Coded Allergies: No Known Drug Allergies (Unverified , 12/12/18) Home Medications Promethazine HCl 25 Mg Tablet, 25 MG PO Q6H PRN for NAUSEA/VOMITING Prescribed by: REMY MILIAN on 12/22/20 6403 Patient Home Medication List Home Medication List Reviewed: Yes Review of Systems Review of Systems Constitutional: see HPI, weakness EENTM: no symptoms reported Respiratory: no symptoms reported Cardiovascular: other (Tachycardia) Gastrointestinal: see HPI Genitourinary: see HPI : No Musculoskeletal: no symptoms reported Skin: no symptoms reported Psychiatric/Neurological: See HPI Hematologic/Lymphatic: No Symptoms Reported Immunological/Allergic: no symptoms reported Past Joedzmu-Zseton-Rcipqq Hx Past Med/Social Hx: Reviewed and Corrections made Patient Social History Alcohol Use: Denies Use Smoking Status: Never a Smoker Recent Infectious Disease Expo: No Recent Hopitalizations: No Seasonal Allergies Seasonal Allergies: No Past Medical History Surgeries: Yes (colon resection) Appendectomy, Hysterectomy Respiratory: No Cardiac: No Neurological: No : No Reproductive Disorders: No Genitourinary: No Gastrointestinal: No Musculoskeletal: No Endocrine: No HEENT: No Cancer: Yes (appendix) Did You Recieve Any Treatments: Yes What Type of Treatment Did You: Chemotherapy, Surgical Intervention Psychosocial: No Integumentary: No Blood Disorders: No Physical Exam-Suspected Sepsis Physical Exam Vital Signs Vital Signs - First Documented 12/23/20 12/23/20 16:39 20:00 Temp 37.1 Pulse 108 Resp 20 B/P (MAP) 126/85 (99) Pulse Ox 95 O2 Delivery Room Air Capillary Refill : Less Than 3 Seconds Blood Pressure Mean: 99 Height, Weight, BMI Height: '" Weight: lbs. oz. kg; 27.00 BMI Method: General Appearance: No Apparent Distress, WD/WN HEENT: PERRL/EOMI, Normal ENT Inspection Neck: Normal Inspection Respiratory: Lungs Clear, Normal Breath Sounds, No Accessory Muscle Use, No Respiratory Distress Cardiovascular: No Edema, No Murmur, Tachycardia Gastrointestinal: Normal Bowel Sounds, Soft; No Distended; Tenderness (Ge neralized, stated as chronic and unchanged) Extremity: Normal Inspection, No Pedal Edema Neurologic/Psychiatric: Alert, Oriented x3, No Motor/Sensory Deficits, Normal Mood/Affect, er rn II-XII Norm as Tested Skin: normal color, warm/dry Focused Exam Lactate Level 12/23/20 16:50: Lactic Acid Level 0.96 Lactic Acid Level Progress/Results/Core Measures Suspected Sepsis Recent Fever Within 48 Hours: No Infection Criteria Present: None New/Unexplained Altered Menta: No Sepsis Screen: No Definite Risk SIRS Temperature: Pulse: 108 Respiratory Rate: 20 Laboratory Tests 12/23/20 16:50: White Blood Count 12.1H 12/24/20 05:05: White Blood Count 10.9 Blood Pressure 126 /85 Mean: 99 12/23/20 16:50: Lactic Acid Level 0.96 Laboratory Tests 12/23/20 16:50: Creatinine 0.83, INR Comment 1.3, Platelet Count 405H, Total Bilirubin 0.3 12/24/20 05:05: Creatinine 0.72, Platelet Count 165 Results/Orders Lab Results Laboratory Tests Test 12/23/20 16:50 12/24/20 05:05 Range/Units White Blood Count 12.1 H 10.9 4.3-11.0 10^3/uL Red Blood Count 3.10 L 3.13 L 3.80-5.11 10^6/uL Hemoglobin 9.8 L 9.4 L 11.5-16.0 g/dL Hematocrit 31 L 29 L 35-52 % Mean Corpuscular Volume 98 94 80-99 fL Mean Corpuscular Hemoglobin 32 30 25-34 pg Mean Corpuscular Hemoglobin Concent 32 32 32-36 g/dL Red Cell Distribution Width 16.0 H 13.5 10.0-14.5 % Platelet Count 405 H 165 130-400 10^3/uL Mean Platelet Volume 8.8 L 10.6 9.0-12.2 fL Immature Granulocyte % (Auto) 2 3 % Neutrophils (%) (Auto) 79 H 71 42-75 % Lymphocytes (%) (Auto) 11 L 8 L 12-44 % Monocytes (%) (Auto) 8 12 0-12 % Eosinophils (%) (Auto) 1 5 0-10 % Basophils (%) (Auto) 0 1 0-10 % Neutrophils # (Auto) 9.6 H 7.8 1.8-7.8 10^3/uL Lymphocytes # (Auto) 1.3 0.9 L 1.0-4.0 10^3/uL Monocytes # (Auto) 0.9 1.3 H 0.0-1.0 10^3/uL Eosinophils # (Auto) 0.1 0.6 H 0.0-0.3 10^3/uL Basophils # (Auto) 0.0 0.1 0.0-0.1 10^3/uL Immature Granulocyte # (Auto) 0.2 H 0.3 H 0.0-0.1 10^3/uL Prothrombin Time 16.9 H 12.2-14.7 SEC INR Comment 1.3 0.8-1.4 Activated Partial Thromboplast Time 46 H 24-35 SEC Sodium Level 137 137 135-145 MMOL/L Potassium Level 3.9 3.2 L 3.6-5.0 MMOL/L Chloride Level 100 107 98-107 MMOL/L Carbon Dioxide Level 20 L 24 21-32 MMOL/L Anion Gap 17 H 6 5-14 MMOL/L Blood Urea Nitrogen 10 12 7-18 MG/DL Creatinine 0.83 0.72 0.60-1.30 MG/DL Estimat Glomerular Filtration Rate > 60 > 60 BUN/Creatinine Ratio 12 17 Glucose Level 95 97 70-105 MG/DL Lactic Acid Level 0.96 0.50-2.00 MMOL/L Calcium Level 8.6 8.0 L 8.5-10.1 MG/DL Corrected Calcium 9.2 8.5-10.1 MG/DL Total Bilirubin 0.3 0.1-1.0 MG/DL Aspartate Amino Transf (AST/SGOT) 28 5-34 U/L Alanine Aminotransferase (ALT/SGPT) 19 0-55 U/L Alkaline Phosphatase 74 40-136 U/L C-Reactive Protein High Sensitivity 15.57 H 4.15 H 0.00-0.50 MG/DL Total Protein 7.4 6.4-8.2 GM/DL Albumin 3.2 3.2-4.5 GM/DL Procalcitonin 0.09 <0.10 NG/ML My Orders Orders - JAMA ESPANA MD Cbc With Automated Diff (12/23/20 16:33) Comprehensive Metabolic Panel (12/23/20 16:33) Blood Culture (12/23/20 16:33) Sputum Culture (12/23/20 16:33) Protime With Inr (12/23/20 16:33) Partial Thromboplastin Time (12/23/20 16:33) Chest 1 View, Ap/Pa Only (12/23/20 16:33) Ed Iv/Invasive Line Start (12/23/20 16:33) Vital Signs Adult Sepsis Patie Q15M (12/23/20 16:33) Remove Rings In Anticipation O (12/23/20 16:33) Lactic Acid Analyzer (12/23/20 16:33) Hs C Reactive Protein (12/23/20 16:33) Procalcitonin (Pct) (12/23/20 16:33) Cefepime Injection (Maxipime Injection) (12/23/20 17:45) Lactated Ringers (Lr 1000 Ml Iv Solution (12/23/20 17:45) Vital Signs/I&O 12/23/20 12/23/20 12/23/20 12/23/20 18:31 18:40 19:47 20:00 Temp 36.3 Pulse 101 106 106 Resp 18 16 B/P (MAP) 122/83 (99) 148/69 (95) Pulse Ox 95 96 95 O2 Delivery Room Air 12/23/20 12/24/20 23:47 04:23 Temp 36.8 36.3 Pulse 86 85 Resp 18 18 B/P (MAP) 101/55 (70) 95/58 (70) Pulse Ox 96 94 O2 Delivery Room Air Room Air Capillary Refill : Less Than 3 Seconds Blood Pressure Mean: 99 Progress Note : Time: 17:50 Progress Note Unfortunately, patient is tachycardic and white count has elevated. CRP is also significantly elevated. Patient meets criteria for sepsis. A new set of blood cultures was acquired. She is being treated initially with IV fluids and cefepime. She will be admitted to Dr. Elizondo's service. Dr. Elizondo accepts the admission. I discussed CODE STATUS with the patient and she requests a DNR order. Diagnostic Imaging Diagonstic Imaging: Xray Plain Films/CT/US/NM/MRI: chest Comments NAME: OLAF YANG [facility] REC#: [id number] PT STATUS: REG ER : 1955 PHYSICIAN: JAMA ESPANA MD ADMIT DATE: 12/23/20/ER Signed Date of Exam:12/23/20 CHEST 1 VIEW, AP/PA ONLY HISTORY: Sepsis. COMPARISON: 12/22/2020. TECHNIQUE: Frontal view of the chest. FINDINGS: Lung volumes are normal. There are airspace opacities in the left lung base which appear stable since the prior study. There may be a minimal left pleural effusion. There is no right effusion. There is no pneumothorax. The right Port-A-Cath is in the right atrium. The cardiac silhouette is stable in size. There is old post-traumatic deformity of the proximal right humerus. IMPRESSION: 1. Left basilar airspace opacities appear stable since the prior study, may represent atelectasis or infiltrate. There may be a minimal left pleural effusion. Dictated by: Dictated on workstation # [id number] Dict: 12/23/20 1653 Trans: 12/23/20 170 AS6 [id number] Interpreted by: ANA DUMONT MD Electronically signed by: NAA DUMONT MD 12/23/20 1702 Departure Communication (Admissions) Time/Spoke to Admitting Phy: 17:40 Dr. Elizondo Impression Primary Impression: Sepsis Qualified Codes: A41.51 - Sepsis due to Escherichia coli [e. coli] Additional Impression: Urinary tract infection Qualified Codes: N39.0 - Urinary tract infection, site not specified Disposition: ADMITTED INPATIENT Condition: Improved Admissions Decision to Admit Reason: Admit from ER (General) Decision to Admit/Date: Dec 23, 2020 Time/Decision to Admit Time: 17:52 Departure-Patient Inst. Referrals: NO,LOCAL PHYSICIAN (PCP/Family) Primary Care Physician JAMA ESPANA MD Dec 23, 2020 17:50
[2020-12-23 18:40] VITALS: BP 148/69
[2020-12-23] MEDS ORDERED: HYDROcodone/APAP 5 MG/325 MG (LORTAB) TAB PO PRN (19:15)
[2020-12-23] MEDS ORDERED: VANCOMYCIN 1250 MG/NS 250 ML IVPB IV NR ×2 (20:00)
[2020-12-23] MEDS ORDERED: VANCOMYCIN 1500 MG/NS 500 ML IVPB IV NR ×2 (20:00)
[2020-12-23] MEDS ORDERED: MELATONIN 3 MG TABLET PO PRN (20:30)
[2020-12-23] MEDS ORDERED: CALCIUM CARBONATE 500 MG (TUMS) TAB.CHEW PO PRN (20:30)
[2020-12-23] MEDS ORDERED: DOCUSATE SODIUM 100 MG (COLACE) CAP PO PRN (20:30)
[2020-12-23] MEDS ORDERED: ALPRAZolam 0.25 MG (XANAX) TAB PO PRN (20:30)
[2020-12-23] MEDS ORDERED: ONDANSETRON 4 MG/2 ML (SDV) Z0FRAN IVP PRN (20:30)
[2020-12-23] MEDS ORDERED: diphenhydrAMINE 25 MG TAB (BENADRYL) PO PRN (20:30)
[2020-12-23] MEDS ORDERED: ENOXAPARIN 40 MG/0.4 ML (LOVENOX) SYR SC SCH (20:30)
[2020-12-23] MEDS ORDERED: ACETAMINOPHEN 500 MG TAB (TYLENOL) PO PRN (20:30)
[2020-12-23] MEDS ORDERED: oxyCODONE/APAP 5/325MG (PERCOCET 5) TABLET ONE (20:44)
[2020-12-23] MEDS: oxyCODONE/APAP 5/325MG (PERCOCET 5) TABLET PO PRN (20:52)
[2020-12-23] MEDS: LACTATED RINGERS 1,000 ML IV SCH (20:53)
[2020-12-23] MEDS ORDERED: ENOXAPARIN 40 MG/0.4 ML (LOVENOX) SYR ONE (21:10)
[2020-12-23] MEDS: SENNA W/DOCUSATE (SENOKOT S) TABLET PO SCH (21:11)
[2020-12-23 23:47] VITALS: BP 101/55
[2020-12-24] MEDS: CEFEPIME 1,000 MG/SWFI 10 ML IV PUSH IV SCH ×10 (00:15→23:32)
[2020-12-24] MEDS: oxyCODONE/APAP 5/325MG (PERCOCET 5) TABLET PO PRN ×5 (00:54→20:58)
[2020-12-24 04:23] VITALS: BP 95/58
[2020-12-24 05:21] LABS: BASOPHILS # (AUTO) 0.1 10^3/uL (0.0-0.1); BASOPHILS % (AUTO) 1 % (0-10); EOSINOPHILS # (AUTO) 0.6 10^3/uL (0.0-0.3); EOSINOPHILS % (AUTO) 5 % (0-10); HEMATOCRIT 29 % (35-52); HEMOGLOBIN 9.4 g/dL (11.5-16.0); LYMPHOCYTES # (AUTO) 0.9 10^3/uL (1.0-4.0); LYMPHOCYTES % (AUTO) 8 % (12-44); MEAN CORPUSCULAR HEMOGLOBIN 30 pg (25-34); MEAN CORPUSCULAR HGB CONC 32 g/dL (32-36); MEAN CORPUSCULAR VOLUME 94 fL (80-99); MEAN PLATELET VOLUME 10.6 fL (9.0-12.2); MONOCYTES # (AUTO) 1.3 10^3/uL (0.0-1.0); MONOCYTES % (AUTO) 12 % (0-12); NEUTROPHILS # (AUTO) 7.8 10^3/uL (1.8-7.8); NEUTROPHILS % (AUTO) 71 % (42-75); PLATELET COUNT 165 10^3/uL (130-400); WHITE BLOOD COUNT 10.9 10^3/uL (4.3-11.0)
[2020-12-24 05:29] LABS: CHLORIDE 107 MMOL/L (98-107); POTASSIUM 3.2 MMOL/L (3.6-5.0); SODIUM 137 MMOL/L (135-145)
[2020-12-24 05:31] LABS: GLUCOSE 97 MG/DL (70-105)
[2020-12-24 05:32] LABS: CARBON DIOXIDE 24 MMOL/L (21-32)
[2020-12-24 05:35] LABS: CREATININE SERUM 0.72 MG/DL (0.60-1.30); GFR ESTIMATED > 60
[2020-12-24 05:36] LABS: BUN/CREATININE RATIO 17
[2020-12-24] MEDS: LACTATED RINGERS 1,000 ML IV SCH ×2 (06:51→08:34)
[2020-12-24 08:00] VITALS: BP 103/62
[2020-12-24] MEDS: KCL 20 MEQ TAB (K-DUR) PO SCH ×2 (08:32→17:17)
[2020-12-24] MEDS: SENNA W/DOCUSATE (SENOKOT S) TABLET PO SCH ×2 (08:37→21:03)
[2020-12-24] MEDS ORDERED: OXYC1TAB11 PO (10:38)
[2020-12-24] MEDS ORDERED: RIVA10TA PO (10:38)
[2020-12-24] MEDS ORDERED: ONDA8TAB15 PO (10:38)
[2020-12-24 12:00] VITALS: BP 91/49
--- NOTE | 2020-12-24 13:15 | History & Physical-Hospitalist ---
TALHA RAMIREZ [facility] 12/24/20 1315: History of Present Illness HPI/Chief Complaint Nayeli is a 64 y/o female that was admitted due to positive blood cultures from her ER visit on 12/22. This blood culture was drawn from her port where she is receiving chemo for a PMH of bowel/appendix cancer. She has had the port for 9 years. Additionally, her urine was positive for an infection and is a known patient of Dr. Escamilla. Prior to her arrival she had N/V, diarrhea and was not feeling good. Today, she is sitting up in bed and feeling nausea after trying to eat breakfast. Her vitals are stable. Labs are stable. She has mild dysuria but denies incomplete emptying.. Denies SOB, Chest pain, F/C and abdominal pain at this time. She has not had a BM since admission. We discussed having Dr. Pastrana on to look at her port and Dr. Cardoso who has been managing her care and chemo.. Source: patient Exam Limitations: no limitations Date Seen 12/24/20 Attending Physician Ismael Weaver DO PCP No,Local Physician Referring Physician Date of Admission Dec 23, 2020 at 17:47 Home Medications & Allergies Home Medications Reviewed patient Home Medication Reconciliation performed by pharmacy medication reconciliations fuel verification technician and/or nursing. Patients Allergies have been reviewed. Allergies Allergies Coded Allergies No Known Drug Allergies (Unverified12/12/18) Past Jseoutr-Opilxd-Eyloft Hx Past Med/Social Hx: Reviewed and Corrections made Patient Social History Alcohol Use: Denies Use Recreational Drug Use: No Smoking Status: Never a Smoker Recent Foreign Travel: No Contact w/other who traveled: No Recent Hopitalizations: No Recent Infectious Disease Expo: No Seasonal Allergies Seasonal Allergies: No Past Medical History Surgeries: Appendectomy, Hysterectomy : No Reproductive: No Did You Recieve Any Treatments: Yes What Type of Treatment Did You: Chemotherapy, Surgical Intervention History of Blood Disorders: No Review of Systems Constitutional: No chills, No fever EENTM: no symptoms reported Respiratory: no symptoms reported Cardiovascular: no symptoms reported Gastrointestinal: no symptoms reported Genitourinary: No decreased output; dysuria; No hematuria Musculoskeletal: no symptoms reported Skin: no symptoms reported Psychiatric/Neurological: No Symptoms Reported Physical Exam Physical Exam Vital Signs Vital Signs - First Documented 12/23/20 12/23/20 16:39 20:00 Temp 37.1 Pulse 108 Resp 20 B/P (MAP) 126/85 (99) Pulse Ox 95 O2 Delivery Room Air Capillary Refill : Less Than 3 Seconds Height, Weight, BMI Height: '" Weight: lbs. oz. kg; 27.50 BMI Method: General Appearance: Mild Distress HEENT: PERRL/EOMI Neck: Non Tender, Supple Respiratory: Chest Non Tender, No Accessory Muscle Use, No Respiratory Distress Cardiovascular: Regular Rate, Rhythm, No Edema, Normal Peripheral Pulses Gastrointestinal: Normal Bowel Sounds, Non Tender, Soft Extremity: Normal Capillary Refill, No Calf Tenderness Neurologic/Psychiatric: Alert, Oriented x3, machine tool rebuilder II-XII Norm as Tested Skin: Normal Color, Warm/Dry Lymphatic: No Adenopathy Results Results/Procedures Labs Laboratory Tests 12/23/20 16:50 12/24/20 05:05 Patient resulted labs reviewed. Assessment/Plan Admission Diagnosis 1. Urinary tract infection - continue abx 2. Sepsis - continue LR IV fluids and Abx 3. Bowel/Appendix cancer - consulted Dr. Cardoso 4. Nausea and vomiting - Zofran 5. Hypokalemia - 20meq BID with Meals - LR fluids Plan 12/24 - consulted Oncology and General surg. Appreciate recs - Redraw on blood cx, pending. - Continue abx of cefepime and vancomycin - DVT prophylaxis - monitor labs ISMAEL WEAVER DO 12/25/20 0552: History of Present Illness HPI/Chief Complaint CC: Unwell HPI: This is a 64yoWF clinic Pt of [facility] and Dr. Cardoso who treats her for appe ndix carcinoma, nine years ago who presents to the ER not feeling well and UA and blood cultures from the ER visit the day before showed E. Coli, only one set was obtained and it was obtained from the port so will need to evaluate the possibility of changing the port site. Pt was placed on Cefepime and Vancomycin empirically. Lovenox maintained for DVT prophylaxis and IV fluids are maintained. Iron ordered but pending at this current time and replacing potassium since it is 3.2. Source: patient Exam Limitations: no limitations Time Seen by a Provider: 11:00 Past Uizggap-Crinar-Nuptwu Hx Past Med/Social Hx: Reviewed Nursing Past Med/Soc Hx, Reviewed and Corrections made Patient Social History Marrital Status: Employed/Student: unemployed Alcohol Use: Denies Use Smoking Status: Never a Smoker Past Medical History Surgeries: Abdominal Cancer: Colon Did You Recieve Any Treatments: Yes Review of Systems Constitutional: see HPI, malaise, weakness Physical Exam Physical Exam General Appearance: No Apparent Distress, Chronically ill Eyes: Right Eye Normal Inspection, Right Eye PERRL HEENT: PERRL/EOMI, Normal ENT Inspection, Pharynx Normal, Moist Mucous Membranes Neck: Full Range of Motion, Normal Inspection, Non Tender Respiratory: Chest Non Tender, Lungs Clear, Normal Breath Sounds, No Accessory Muscle Use, No Respiratory Distress Cardiovascular: Regular Rate, Rhythm, No Edema, No Gallop, No JVD, No Murmur, Normal Peripheral Pulses Gastrointestinal: Normal Bowel Sounds, No Organomegaly, No Pulsatile Mass, Non Tender, Soft Back: Normal Inspection, No CVA Tenderness, No Vertebral Tenderness Extremity: Normal Capillary Refill, Normal Inspection, Normal Range of Motion, Non Tender, No Calf Tenderness, No Pedal Edema Neurologic/Psychiatric: Alert, Oriented x3, No Motor/Sensory Deficits, Depressed Affect Skin: Normal Color, Warm/Dry Lymphatic: No Adenopathy Assessment/Plan Admission Diagnosis Assessment: Sepsis Bacteremia UTI Obstruction of ureter needs stent Tuesday Admission Status: Inpatient Order (span 2 midnights) Reason for Inpatient Admission: sepsis Diagnosis/Problems Diagnosis/Problems (1) Ureter obstruction (2) Appendix carcinoma (3) Sepsis Status: Acute Qualifiers: Sepsis type: Escherichia coli Sepsis acute organ dysfunction status: without acute organ dysfunction Qualified Codes: A41.51 - Sepsis due to Escherichia coli [e. coli] (4) Urinary tract infection Status: Acute Qualifiers: Urinary tract infection type: site unspecified Hematuria presence: without hematuria Qualified Codes: N39.0 - Urinary tract infection, site not specified (5) Nausea & vomiting Status: Acute (6) Generalized weakness Status: Acute Supervisory-Addendum Brief Verification & Attestation Participated in pt care: history, MDM, physical Personally performed: exam, history, MDM, supervision of care Care discussed with: Medical Student Procedures: n/a Results interpretation: Verified all documentation Verification and Attestation of Medical Student E/M Service A medical student performed and documented this service in my presence. I reviewed and verified all information documented by the medical student and made modifications to such information, when appropriate. I personally performed the physical exam and medical decision making. Ismael Weaver, Dec 25, 2020,05:52 TALHA RAMIREZ [facility] Dec 24, 2020 13:15 ISMAEL WEAVER DO Dec 25, 2020 05:52
--- NOTE | 2020-12-24 13:24 | Consultation - Surgery ---
NICHOLASBISI MED STUDENT 12/24/20 1324: History of Present Illness History of Present Illness Patient Consulted On(ava/time) 12/24/20 13:18 Date Seen by Provider: Dec 24, 2020 Time Seen by Provider: 13:10 History of Present Illness Patient is awake and sitting up in bed. States she was in the ER two days ago for some weakness and was told to come back yesterday due to suspicion of sepsis. She had blood cultures positive for gram - swapnil, she also had a positive urine culture for E.coli that is the possible source. She had previous diarrhea and vomiting, states that she hasn't thrown up since yesterday. She does complain of some dysuria which she says is common for her when she gets a UTI, states she gets them often because of her cancer medication. 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 She states she has been feeling unwell for about 2 months now. States she has pain in the R kidney and back area, probably about a 6. Radiates throughout the LRQ. Says the pain is sharp in the front, dull in the back. Says overtime the pain gets worse. The only thing that helps is pain pills. She last ate this morning and had some nausea w/o vomiting with food. LBM yesterday. She denies any blood or pain with defecation. Complains of disuria but denies hematuria. She has not done any PT but is able to ambulate herself. Her diagnosis of cancer was about 9 years ago. She has a port that is possibly contaminated that was also placed about 9 years ago. She states is has not given her any problems in the past years. Blood cultures drawn yesterday show no sepsis, no E.coli found from port. Allergies and Home Medications Allergies Coded Allergies: No Known Drug Allergies (Unverified , 12/12/18) Home Medications Ondansetron HCl 8 Mg Tablet, 8 MG PO Q8H PRN for NAUSEA/VOMITING-1ST LINE, (Reported) Oxycodone HCl/Acetaminophen 1 Each Tablet, 1 EA PO Q4 -6H PRN for PAIN-MODERATE (5-7), (Reported) Rivaroxaban 10 Mg Tablet, 10 MG PO DAILY, (Reported) Patient Home Medication List Home Medication List Reviewed: Yes Past Gabcorq-Cadfyt-Possut Hx Patient Social History Smoking Status: Never a Smoker Recent Hopitalizations: No Physical Abuse Screen: No Alcohol Use?: No Have you traveled recently?: No Seasonal Allergies Seasonal Allergies: No Surgeries History of Surgeries: Yes (colon resection) Surgeries: Appendectomy, Bowel Surgery (Hemicolectomy), Hysterectomy Respiratory History of Respiratory Disorde: No Cardiovascular History of Cardiac Disorders: No Neurological History of Neurological Disord: No Reproductive System : No Hx Reproductive Disorders: No Genitourinary History of Genitourinary Disor: Yes Genitourinary Disorders: UTI-Chronic (from cancer medications per pt. ) Gastrointestinal History of Gastrointestinal Di: No Musculoskeletal History of Musculoskeletal Dis: No Endocrine History of Endocrine Disorders: No HEENT History of HEENT Disorders: No Cancer History of Cancer: Yes (appendix) Cancer: Colon (Colon and appendix) Psychosocial History of Psychiatric Problem: No Integumentary History of Skin or Integumenta: No Blood Transfusions History of Blood Disorders: No Family Medical History Significant Family History: Cancer (Kidney-Mother), Diabetes (Father) Review of Systems-General Constitutional: No chills, No fever Respiratory: No cough; short of breath (Chronic); No wheezing Cardiovascular: No chest pain, No edema, No palpitations Gastrointestinal: abdominal pain (RLQ); No constipation, No diarrhea, No dysphagia, No melena; nausea, vomiting (Last emesis Yesterday) Genitourinary: dysuria; No hematuria Musculoskeletal: No joint pain Skin: No rash Psychiatric/Neurological: Denies Headache Physical Exam-General Problems Physical Exam Vital Signs Vital Signs - First Documented 12/23/20 12/23/20 16:39 20:00 Temp 37.1 Pulse 108 Resp 20 B/P (MAP) 126/85 (99) Pulse Ox 95 O2 Delivery Room Air Capillary Refill : Less Than 3 Seconds General Appearance: WD/WN, no apparent distress Respiratory: chest non-tender, lungs clear, normal breath sounds, no respiratory distress, no accessory muscle use Cardiovascular: regular rate, rhythm, no edema, no murmur Peripheral Pulses: 2+ Radial Pulses (R), 2+ Radial Pulses (L) Gastrointestinal: normal bowel sounds, soft, tenderness (w/ palpation RLQ, mild) Rectal: deferred Extremities: no pedal edema, no calf tenderness Neurologic/Psychiatric: alert, normal mood/affect, oriented x 3 Skin: normal color, warm/dry Data Review Labs Laboratory Tests 12/23/20 16:50: White Blood Count 12.1H, Red Blood Count 3.10L, Hemoglobin 9.8L, Hematocrit 31L, Mean Corpuscular Volume 98, Mean Corpuscular Hemoglobin 32, Mean Corpuscular Hemoglobin Concent 32, Red Cell Distribution Width 16.0H, Platelet Count 405H, Mean Platelet Volume 8.8L, Immature Granulocyte % (Auto) 2, Neutrophils (%) (Auto) 79H, Lymphocytes (%) (Auto) 11L, Monocytes (%) (Auto) 8, Eosinophils (%) (Auto) 1, Basophils (%) (Auto) 0, Neutrophils # (Auto) 9.6H, Lymphocytes # (Auto) 1.3, Monocytes # (Auto) 0.9, Eosinophils # (Auto) 0.1, Basophils # (Auto) 0.0, Immature Granulocyte # (Auto) 0.2H, Prothrombin Time 16.9H, INR Comment 1.3, Activated Partial Thromboplast Time 46H, Sodium Level 137, Potassium Level 3.9, Chloride Level 100, Carbon Dioxide Level 20L, Anion Gap 17H, Blood Urea Nitrogen 10, Creatinine 0.83, Estimat Glomerular Filtration Rate > 60, BUN/Creatinine Ratio 12, Glucose Level 95, Lactic Acid Level 0.96, Calcium Level 8.6, Corrected Calcium 9.2, Total Bilirubin 0.3, Aspartate Amino Transf (AST/SGOT) 28, Alanine Aminotransferase (ALT/SGPT) 19, Alkaline Phosphatase 74, C-Reactive Protein High Sensitivity 15.57H, Total Protein 7.4, Albumin 3.2, Procalcitonin 0.09 12/24/20 05:05: White Blood Count 10.9, Red Blood Count 3.13L, Hemoglobin 9.4L, Hematocrit 29L, Mean Corpuscular Volume 94, Mean Corpuscular Hemoglobin 30, Mean Corpuscular Hemoglobin Concent 32, Red Cell Distribution Width 13.5, Platelet Count 165, Mean Platelet Volume 10.6, Immature Granulocyte % (Auto) 3, Neutrophils (%) (Auto) 71, Lymphocytes (%) (Auto) 8L, Monocytes (%) (Auto) 12, Eosinophils (%) (Auto) 5, Basophils (%) (Auto) 1, Neutrophils # (Auto) 7.8, Lymphocytes # (Auto) 0.9L, Monocytes # (Auto) 1.3H, Eosinophils # (Auto) 0.6H, Basophils # (Auto) 0.1, Immature Granulocyte # (Auto) 0.3H, Sodium Level 137, Potassium Level 3.2L, Chloride Level 107, Carbon Dioxide Level 24, Anion Gap 6, Blood Urea Nitrogen 12, Creatinine 0.72, Estimat Glomerular Filtration Rate > 60, BUN/Creatinine Ratio 17, Glucose Level 97, Calcium Level 8.0L, C-Reactive Protein High Sensitiv ity 4.15H Radiology Date of Exam:12/23/20 CHEST 1 VIEW, AP/PA ONLY HISTORY: Sepsis. COMPARISON: 12/22/2020. TECHNIQUE: Frontal view of the chest. FINDINGS: Lung volumes are normal. There are airspace opacities in the left lung base which appear stable since the prior study. There may be a minimal left pleural effusion. There is no right effusion. There is no pneumothorax. The right Port-A-Cath is in the right atrium. The cardiac silhouette is stable in size. There is old post-traumatic deformity of the proximal right humerus. IMPRESSION: 1. Left basilar airspace opacities appear stable since the prior study, may represent atelectasis or infiltrate. There may be a minimal left pleural effusion. Dictated by: Dictated on workstation # [id number] Dict: 12/23/20 1653 Trans: 12/23/20 1702 [id number] Interpreted by: ANA DUMONT MD Electronically signed by: ANA DUMONT MD 12/23/20 1702 Assessment/Plan Assessment/Plan Assessment/Plan Sepsis/UTI -Resolved, No fever, vitals stable, negative blood cultures, leukocytosis resolved -Continue ABX and fluids -Continue CBC to check white count -Likely will not need port removed or replaced due to negative culture Anemia -Stable, no evidence of current bleed or anemic symptoms -Continue to check with CBC Colon/Appenix cancer -Continue pts cancer treatment regiment -Pain under control CALEB HUFF DO 12/24/20 1632: History of Present Illness History of Present Illness Time Seen by Provider: 13:33 History of Present Illness Pt seen and examined, states she feels ok today. She complains of some pain in her back radiating into stomach. She has been feeling weak over the past week or so. Allergies and Home Medications Allergies Coded Allergies: No Known Drug Allergies (Unverified , 12/12/18) Home Medications Ondansetron HCl 8 Mg Tablet, 8 MG PO Q8H PRN for NAUSEA/VOMITING-1ST LINE, (Reported) Oxycodone HCl/Acetaminophen 1 Each Tablet, 1 EA PO Q4 -6H PRN for PAIN-MODERATE (5-7), (Reported) Rivaroxaban 10 Mg Tablet, 10 MG PO DAILY, (Reported) Patient Home Medication List Home Medication List Reviewed: Yes Past Qpfppiq-Mmkhty-Unihca Hx Surgeries History of Surgeries: Yes Respiratory History of Respiratory Disorde: No Neurological History of Neurological Disord: No Genitourinary History of Genitourinary Disor: Yes Cancer Cancer: Colon (Colon and appendix) Family Medical History Significant Family History: Cancer (Kidney-Mother), Diabetes (Father) Review of Systems-General Constitutional: No chills, No fever; malaise EENTM: No blurred vision, No mouth swelling, No epistaxis Respiratory: No cough; short of breath (Chronic); No wheezing Cardiovascular: No chest pain, No edema, No palpitations Gastrointestinal: abdominal pain (RLQ); No constipation, No diarrhea, No dysph agia, No melena; nausea, vomiting (Last emesis Yesterday) Genitourinary: dysuria; No hematuria Musculoskeletal: joint pain Skin: No rash Psychiatric/Neurological: Denies Headache Other pt denies any abnormal bleeding or bruising Physical Exam-General Problems Physical Exam General Appearance: WD/WN, no apparent distress Eyes: Bilateral Eye PERRL, Bilateral Eye Abnormal EOM HEENT: No scleral icterus (R), No scleral icterus (L) Respiratory: lungs clear, normal breath sounds, no respiratory distress, no accessory muscle use Cardiovascular: regular rate, rhythm, no edema, no murmur Gastrointestinal: normal bowel sounds, soft, tenderness (right side and back) Extremities: no pedal edema, no calf tenderness Neurologic/Psychiatric: histology aide II-XII nml as tested, alert, normal mood/affect, oriented x 3 Skin: normal color, warm/dry Lymphatic: no adenopathy (neck, axilla or groin) Assessment/Plan Assessment/Plan Assessment/Plan Bacteremia Hx of Mucinous Appendiceal CA Loida-Cath Status Anemia Pt's repeat blood cultures have come back negative. Would hold off on removing port for now and monitor pt; it is possible her UTI seeded her blood, but that it has not yet colonized the port. Continue ABX and monitor labs. Pt was supposed to see Urology, may need inpt consult. Supervisory-Addendum Brief Verification & Attestation Participated in pt care: history, MDM, physical Personally performed: exam, history, MDM Care discussed with: Medical Student Procedures: n/a Verification and Attestation of Medical Student E/M Service A medical student performed and documented this service. I then reviewed and verified all information documented by the medical student and made modifications to such information, when appropriate. I personally performed a physical exam, medical decision making and then discussed any differences between the notes and made revisions as necessary to create one note. Caleb Huff , 12/24/20 , 16:41 BISI PETERSON MED STUDENT Dec 24, 2020 13:24 CALEB HUFF DO Dec 24, 2020 16:32
[2020-12-24 14:00] VITALS: BP 129/58
[2020-12-24 16:00] VITALS: BP 96/56
[2020-12-24 20:30] VITALS: BP 121/62
[2020-12-24] MEDS: ONDANSETRON 4 MG/2 ML (SDV) Z0FRAN IVP PRN (20:57)
[2020-12-24] MEDS: VANCOMYCIN 1 GM/NS 250 ML IVPB IV SCH ×2 (20:57)
[2020-12-24] MEDS: ENOXAPARIN 40 MG/0.4 ML (LOVENOX) SYR SC SCH (20:59)
[2020-12-25] MEDS: LACTATED RINGERS 1,000 ML IV SCH ×2 (00:31→12:02)
[2020-12-25 00:55] VITALS: BP 104/66
[2020-12-25] MEDS: oxyCODONE/APAP 5/325MG (PERCOCET 5) TABLET PO PRN ×4 (03:07→18:55)
[2020-12-25 04:46] VITALS: BP 106/57
[2020-12-25] MEDS: CEFEPIME 1,000 MG/SWFI 10 ML IV PUSH IV SCH ×6 (05:27→18:51)
[2020-12-25 05:42] LABS: BASOPHILS % (AUTO) 0 % (0-10); EOSINOPHILS # (AUTO) 0.1 10^3/uL (0.0-0.3); EOSINOPHILS % (AUTO) 1 % (0-10); HEMATOCRIT 26 % (35-52); HEMOGLOBIN 8.1 g/dL (11.5-16.0); LYMPHOCYTES # (AUTO) 0.8 10^3/uL (1.0-4.0); LYMPHOCYTES % (AUTO) 9 % (12-44); MEAN CORPUSCULAR HEMOGLOBIN 31 pg (25-34); MEAN CORPUSCULAR HGB CONC 32 g/dL (32-36); MEAN CORPUSCULAR VOLUME 98 fL (80-99); MONOCYTES # (AUTO) 0.9 10^3/uL (0.0-1.0); MONOCYTES % (AUTO) 9 % (0-12); NEUTROPHILS # (AUTO) 7.6 10^3/uL (1.8-7.8); NEUTROPHILS % (AUTO) 79 % (42-75); PLATELET COUNT 300 10^3/uL (130-400); WHITE BLOOD COUNT 9.6 10^3/uL (4.3-11.0)
[2020-12-25 06:14] LABS: ALBUMIN 2.6 GM/DL (3.2-4.5); CHLORIDE 103 MMOL/L (98-107); POTASSIUM 4.1 MMOL/L (3.6-5.0); SODIUM 136 MMOL/L (135-145)
[2020-12-25 06:15] LABS: CALCIUM 8.1 MG/DL (8.5-10.1)
[2020-12-25 06:16] LABS: GLUCOSE 91 MG/DL (70-105); TOTAL PROTEIN 5.9 GM/DL (6.4-8.2)
[2020-12-25 06:17] LABS: CARBON DIOXIDE 24 MMOL/L (21-32)
[2020-12-25 06:18] LABS: BILIRUBIN,TOTAL 0.3 MG/DL (0.1-1.0)
[2020-12-25 06:20] LABS: ALKALINE PHOSPHATASE 59 U/L (40-136); CREATININE SERUM 0.68 MG/DL (0.60-1.30); GFR ESTIMATED > 60
[2020-12-25 06:21] LABS: BUN/CREATININE RATIO 9
[2020-12-25 06:23] LABS: ALANINE AMINOTRANSFERASE 17 U/L (0-55)
[2020-12-25 07:21] VITALS: BP 114/68
[2020-12-25] MEDS: ONDANSETRON 4 MG/2 ML (SDV) Z0FRAN IVP PRN (07:48)
[2020-12-25] MEDS: KCL 20 MEQ TAB (K-DUR) PO SCH ×2 (07:48→18:51)
[2020-12-25] MEDS: SENNA W/DOCUSATE (SENOKOT S) TABLET PO SCH ×2 (07:50→19:31)
--- NOTE | 2020-12-25 08:19 | Progress Note - Surgery ---
BISI PETERSON MED STUDENT 12/25/20 0819: Subjective Date Seen by a Provider: Dec 25, 2020 Time Seen by a Provider: 07:00 Subjective/Events-last exam Patient is awake and sitting up in bed this morning. States she is having no pain or fevers this morning. She does have nausea after eating. Had a bout of nausea yesterday at lunch while trying to have some lettuce. She is eating soft foods. LBM was last night. She denies any blood or pain with bowel movements or urination. She is ambulating around her room, no formal PT. Wants to know when she will be able to go home. Review of Systems General: No Chills, No Night Sweats HEENT: No Head Aches, No Visual Changes Pulmonary: No Dyspnea, No Cough Cardiovascular: No: Chest Pain, Palpitations Gastrointestinal: Nausea (With foods), Diarrhea; No: Vomiting, Abdominal Pain, Melena, Hematochezia Genitourinary: No Dysuria, No Hematuria Musculoskeletal: No: leg pain Focused Exam Lactate Level 12/23/20 16:50: Lactic Acid Level 0.96 Objective Exam Vital Signs Date Time Temp Pulse Resp B/P (MAP) Pulse Ox O2 Delivery O2 Flow Rate FiO2 12/25/20 07:21 36.6 99 114/68 (83) 95 Room Air 12/25/20 04:46 36.1 94 20 106/57 (73) 94 Room Air 12/25/20 00:55 36.4 88 20 104/66 (79) 95 Room Air 12/24/20 20:45 Room Air 12/24/20 20:30 36.7 95 15 121/62 (81) 94 Room Air 12/24/20 16:00 36.2 69 16 96/56 (69) 92 Room Air 12/24/20 14:00 129/58 (81) 12/24/20 12:00 37.2 66 18 91/49 (63) 95 Room Air I & O 12/25/20 06:59 Intake Total 1070 ml Output Total 1225 ml Balance -155 ml Capillary Refill : Less Than 3 Seconds General Appearance: No Apparent Distress, Chronically ill Respiratory: Chest Non Tender, Lungs Clear, Normal Breath Sounds, No Accessory Muscle Use, No Respiratory Distress Cardiovascular: Regular Rate, Rhythm, No Edema, No Murmur Peripheral Pulses: 2+ Radial Pulses (R), 2+ Radial Pulses (L) Gastrointestinal: normal bowel sounds, soft Extremity: Non Tender, No Calf Tenderness, No Pedal Edema Neurologic/Psychiatric: Alert, Oriented x3 Skin: Normal Color, Warm/Dry Results Lab Laboratory Tests 12/25/20 05:15: White Blood Count 9.6, Red Blood Count 2.62L, Hemoglobin 8.1L, Hematocrit 26L, Mean Corpuscular Volume 98, Mean Corpuscular Hemoglobin 31, Mean Corpuscular Hemoglobin Concent 32, Red Cell Distribution Width 16.0H, Platelet Count 300, Mean Platelet Volume 9.0, Immature Granulocyte % (Auto) 2, Neutrophils (%) (Auto) 79H, Lymphocytes (%) (Auto) 9L, Monocytes (%) (Auto) 9, Eosinophils (%) (Auto) 1, Basophils (%) (Auto) 0, Neutrophils # (Auto) 7.6, Lymphocytes # (Auto) 0.8L, Monocytes # (Auto) 0.9, Eosinophils # (Auto) 0.1, Basophils # (Auto) 0.0, Immature Granulocyte # (Auto) 0.2H, Sodium Level 136, Potassium Level 4.1, Chloride Level 103, Carbon Dioxide Level 24, Anion Gap 9, Blood Urea Nitrogen 6L , Creatinine 0.68, Estimat Glomerular Filtration Rate > 60, BUN/Creatinine Ratio 9, Glucose Level 91, Calcium Level 8.1L, Corrected Calcium 9.2, Total Bilirubin 0.3, Aspartate Amino Transf (AST/SGOT) 21, Alanine Aminotransferase (ALT/SGPT) 17, Alkaline Phosphatase 59, Total Protein 5.9L, Albumin 2.6L Microbiology 12/23/20 Blood Culture - Preliminary, Resulted No growth Assessment/Plan Assessment/Plan Assessment/Plan Bacteremia -Cultures came back negative, continue abx -Continue to monitor WBC with CBC -D/C after abx complete Loida-Cath Status -No plans to remove since it is not clear to be a source of infection -Will continue to monitor, may need replaced if suspicous for colonization Anemia -Decreased to 8.1 today -Pt still appears stable, no source of bleed or symptoms -Continue to monitor w/ CBC, possible transfusion if worsens. -May need urology consult Hx of Mucinous Appendiceal CA ALVARO PASTRANA DO 12/25/20 1805: Subjective Time Seen by a Provider: 17:49 Subjective/Events-last exam Pt seen and examined, no new complaints and no changes. Review of Systems General: No Chills, No Night Sweats HEENT: No Head Aches, No Visual Changes Pulmonary: No Dyspnea, No Cough Cardiovascular: No: Chest Pain, Palpitations Gastrointestinal: Nausea (With foods); No: Vomiting, Abdominal Pain Objective Exam General Appearance: No Apparent Distress, Chronically ill Respiratory: Lungs Clear, Normal Breath Sounds, No Accessory Muscle Use, No Respiratory Distress Cardiovascular: Regular Rate, Rhythm, No Murmur Gastrointestinal: normal bowel sounds, non tender, soft Extremity: No Calf Tenderness, No Pedal Edema Neurologic/Psychiatric: Alert, Oriented x3 Assessment/Plan Assessment/Plan Assessment/Plan Bacteremia - on one set of cultures only, continue abx would switch to PO Loida-Cath Status, No plans to remove b/c doubt it is source of infection Anemia -Decreased to 8.1 today Pt states she is going home tomorrow, agree with this plan. Supervisory-Addendum Brief Verification & Attestation Participated in pt care: history, MDM, physical Personally performed: exam, history, MDM Care discussed with: Medical Student Procedures: n/a Verification and Attestation of Medical Student E/M Service A medical student performed and documented this service. I then reviewed and verified all information documented by the medical student and made modifications to such information, when appropriate. I personally performed a physical exam, medical decision making and then discussed any differences between the notes and made revisions as necessary to create one note. Alvaro Pastrana , 12/25/20 , 18:05 BISI PETERSON MED STUDENT Dec 25, 2020 08:19 ALVARO PASTRANA DO Dec 25, 2020 18:05
[2020-12-25 11:10] VITALS: BP 97/52
--- NOTE | 2020-12-25 12:09 | Progress Note - Hospitalist ---
Subjective HPI/CC On Admission Date Seen by Provider: Dec 25, 2020 Time Seen by Provider: 10:30 CC: Unwell HPI: This is a 64yoWF clinic Pt of [facility] and Dr. 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 Coli, only one set was obtained and it was obtained from the port so will need to evaluate the possibility of changing the port site. Pt was placed on Cefepime and Vancomycin empirically. Lovenox maintained for DVT prophylaxis and IV fluids are maintained. Iron ordered but pending at this current time and replacing potassium since it is 3.2. Subjective/Events-last exam 12/25/20: Patient doing well Flat affect and chronic depression noted Wants to go home soon BCx still NGTD Dr Escamilla told me after rounds she cancelled the procedure for Tuesday Hgb 8.1 A bit queasy today Review of Systems General: Fatigue, Malaise Focused Exam Lactate Level 12/23/20 16:50: Lactic Acid Level 0.96 Objective Exam Vital Signs Vital Signs Date Time Temp Pulse Resp B/P (MAP) Pulse Ox O2 Delivery O2 Flow Rate FiO2 12/26/20 04:57 37.2 95 18 103/71 (82) 99 Room Air Capillary Refill : Less Than 3 Seconds General Appearance: No Apparent Distress, WD/WN, Chronically ill Respiratory: Lungs Clear Cardiovascular: Regular Rate, Rhythm Neurologic/Psychiatric: Alert, Oriented x3, Depressed Affect Results/Procedures Lab Laboratory Tests 12/26/20 04:59 Patient resulted labs reviewed. Assessment/Plan Assessment and Plan Assess & Plan/Chief Complaint Assessment: Sepsis Bacteremia E. coli Appendix cancer on current treatment Anemia Port in place Plan: IV abx Monitor closely Diagnosis/Problems Diagnosis/Problems (1) Ureter obstruction (2) Appendix carcinoma (3) Sepsis Status: Acute Qualifiers: Sepsis type: Escherichia coli Sepsis acute organ dysfunction status: without acute organ dysfunction Qualified Codes: A41.51 - Sepsis due to Escherichia coli [e. coli] (4) Urinary tract infection Status: Acute Qualifiers: Urinary tract infection type: site unspecified Hematuria presence: without hematuria Qualified Codes: N39.0 - Urinary tract infection, site not specified (5) Nausea & vomiting Status: Acute (6) Generalized weakness Status: Acute ISMAEL WEAVER DO Dec 25, 2020 12:09
[2020-12-25 16:00] VITALS: BP 106/62
--- NOTE | 2020-12-25 16:17 | Oncology Consultation ---
Visit Information Visit Information Date of Admission Dec 23, 2020 at 17:47 Attending Physician Anamaria Elizondo DO Admitting Physician No,Local Physician Chief Complaint E coli UTI and bateremia, urethral obstruction, adenocarcinoma Interval History Ms. 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 She has been multiple lines of the c hemotherapy and immunotherapy over the last 8 years. The most recent treatment was Lonsurf under his primary oncologist Dr Sarabia. She has not been feeling well over last 3-4 weeks with increasing abdominal pain, fatigue, and Lonsurf has been on hold. She presented to ER 12/24/2020 complaining general weakness, and UA showed UTI. Last CT scan 12-10-[address] of chest abd/pelvis 12-10-2020: 1. Decrease in size of multiple liver lesions when compared with exam from 01/28/2020. 2. Calcified mass in the right side of retroperitoneum again obstructing the right ureter. There is significant right-sided hydronephrosis. Mass does measure similar to perhaps slightly larger when compared with prior exam. No other new abnormality in the abdomen or pelvis is identified. Blood culture 12/22/2020 from the port: + Ecoli. Blood culture 12/23/2020 from peripheral: negative. Unclear if patient has started antibiotics Urine culture 12/22/2020: + Ecoli. I consulted the patient on: 12/25/20 16:17 Time Seen by Provider: 16:17 Review of Systems Constitutional: see HPI Health Status Allergies Coded Allergies: No Known Drug Allergies (Unverified , 12/12/18) Home Medications Ondansetron HCl (Ondansetron HCl) 8 Mg Tablet, 8 MG PO Q8H PRN for NAUSEA/VOMITING-1ST LINE, (Reported) Oxycodone HCl/Acetaminophen (Oxycodone-Acetaminophen 5-325) 1 Each Tablet, 1 EA PO Q4 -6H PRN for PAIN-MODERATE (5-7), (Reported) Rivaroxaban (Xarelto) 10 Mg Tablet, 10 MG PO DAILY, (Reported) TVS-Izpexl-Mwecka Hx Patient Social History Marrital Status: Employed/Student: unemployed Smoking Status: Never a Smoker Recent Hopitalizations: No Physical Abuse Screen: No Alcohol Use?: No Have you traveled recently?: No Family Medical History Significant Family History: Cancer (Kidney-Mother), Diabetes (Father) Physical Exam Vital Signs Vital Signs - First Documented 12/23/20 12/23/20 16:39 20:00 Temp 37.1 Pulse 108 Resp 20 B/P (MAP) 126/85 (99) Pulse Ox 95 O2 Delivery Room Air Capillary Refill : Less Than 3 Seconds Height, Weight, BMI Height: '" Weight: lbs. oz. kg; 27.50 BMI Method: General Appearance: No Apparent Distress HEENT: PERRL/EOMI Neck: Supple Respiratory: No Accessory Muscle Use, No Respiratory Distress Cardiovascular: Regular Rate, Rhythm Extremity: Non Tender, No Calf Tenderness Neurologic/Psychiatric: Alert, Oriented x3 Data Review Labs Laboratory Tests 12/25/20 05:15 Laboratory Tests 12/23/20 16:50: White Blood Count 12.1H, Red Blood Count 3.10L, Hemoglobin 9.8L, Hematocrit 31L, Red Cell Distribution Width 16.0H, Platelet Count 405H, Mean Platelet Volume 8.8L, Neutrophils (%) (Auto) 79H, Lymphocytes (%) (Auto) 11L, Neutrophils # (Auto) 9.6H, Immature Granulocyte # (Auto) 0.2H, Prothrombin Time 16.9H, Activated Partial Thromboplast Time 46H, Carbon Dioxide Level 20L, Anion Gap 17H , Iron Level 17L, C-Reactive Protein High Sensitivity 15.57H 12/24/20 05:05: Red Blood Count 3.13L, Hemoglobin 9.4L, Hematocrit 29L, Lymphocytes (%) (Auto) 8L, Immature Granulocyte # (Auto) 0.3H, C-Reactive Protein High Sensitivity 4.15H, Lymphocytes # (Auto) 0.9L, Monocytes # (Auto) 1.3H, Eosinophils # (Auto) 0.6H, Potassium Level 3.2L, Calcium Level 8.0L 12/25/20 05:15: Red Blood Count 2.62L, Hemoglobin 8.1L, Hematocrit 26L, Red Cell Distribution Width 16.0H, Neutrophils (%) (Auto) 79H, Lymphocytes (%) (Auto) 9L, Immature Granulocyte # (Auto) 0.2H, Lymphocytes # (Auto) 0.8L, Calcium Level 8.1L, Blood Urea Nitrogen 6L, Total Protein 5.9L, Albumin 2.6L 12/25/20 11:14: Impression & Plan Impression & Plan Impression & Plan Impression & Plan Impression & Plan IMP: 1. Ecoli positive blood culture from the port and urine culture on 12/22/2020, suggesting E coli UTI and port related bacteremia. Repeat blood culture from the peripheral 12/23/2020 negative x2. She has been on Cefepime and Vanco since the admission. 2. 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 She has been multiple lines of the chemotherapy (FOLFOX, FOFIRI, and immunotherapy Keytruda over the last 8 years. The most recent treatment was Lonsurf under his primary oncologist Dr Sarabia. 3. Calcified mass in the right side of retroperitoneum obstructing the right ureter with significant right-sided hydronephrosis 4. Increasing abdominal pain, fatigue, despite the cancer treatment drug Lonsurf has been on hold. 5. Anemia. Plan: 1. Consult Dr Escamilla 2. Continue IV antibiotics. f/u the culture sensitivities and adjust the antibiotics 3. Hold off all the cancer treatment until the infection completely clears. 4. Dr Sarabia will be back tomorrow to discuss with patient about the future treatment options and the decision of the port. MEGAN HUNT MD Dec 25, 2020 16:17
[2020-12-25 19:00] VITALS: BP 113/65
[2020-12-25] MEDS: ENOXAPARIN 40 MG/0.4 ML (LOVENOX) SYR SC SCH (19:31)
[2020-12-25] MEDS: VANCOMYCIN 1 GM/NS 250 ML IVPB IV SCH ×2 (20:07)
[2020-12-26 00:05] VITALS: BP 107/72
[2020-12-26] MEDS: CEFEPIME 1,000 MG/SWFI 10 ML IV PUSH IV SCH ×4 (00:51→05:20)
[2020-12-26] MEDS: LACTATED RINGERS 1,000 ML IV SCH (01:54)
[2020-12-26 04:57] VITALS: BP 103/71
[2020-12-26 05:12] LABS: BASOPHILS % (AUTO) 0 % (0-10); EOSINOPHILS # (AUTO) 0.1 10^3/uL (0.0-0.3); EOSINOPHILS % (AUTO) 1 % (0-10); HEMATOCRIT 26 % (35-52); HEMOGLOBIN 8.2 g/dL (11.5-16.0); LYMPHOCYTES # (AUTO) 0.8 10^3/uL (1.0-4.0); LYMPHOCYTES % (AUTO) 9 % (12-44); MEAN CORPUSCULAR HEMOGLOBIN 31 pg (25-34); MEAN CORPUSCULAR HGB CONC 32 g/dL (32-36); MEAN CORPUSCULAR VOLUME 98 fL (80-99); MEAN PLATELET VOLUME 9.1 fL (9.0-12.2); MONOCYTES # (AUTO) 0.9 10^3/uL (0.0-1.0); MONOCYTES % (AUTO) 10 % (0-12); NEUTROPHILS # (AUTO) 7.2 10^3/uL (1.8-7.8); NEUTROPHILS % (AUTO) 78 % (42-75); PLATELET COUNT 281 10^3/uL (130-400); WHITE BLOOD COUNT 9.1 10^3/uL (4.3-11.0)
[2020-12-26 05:26] LABS: ALBUMIN 2.6 GM/DL (3.2-4.5); CHLORIDE 102 MMOL/L (98-107); POTASSIUM 3.9 MMOL/L (3.6-5.0); SODIUM 137 MMOL/L (135-145)
[2020-12-26 05:29] LABS: GLUCOSE 93 MG/DL (70-105); TOTAL PROTEIN 5.9 GM/DL (6.4-8.2)
[2020-12-26 05:30] LABS: BILIRUBIN,TOTAL 0.3 MG/DL (0.1-1.0); CARBON DIOXIDE 26 MMOL/L (21-32)
[2020-12-26 05:32] LABS: ALKALINE PHOSPHATASE 57 U/L (40-136); CREATININE SERUM 0.64 MG/DL (0.60-1.30); GFR ESTIMATED > 60
[2020-12-26 05:33] LABS: BUN/CREATININE RATIO 11
[2020-12-26 05:35] LABS: ALANINE AMINOTRANSFERASE 16 U/L (0-55)
[2020-12-26] MEDS ORDERED: CEFD300C3 PO (06:26)
--- NOTE | 2020-12-26 06:26 | Discharge Summary ---
Discharge Summary Hospital Course Was the Problem List Reviewed?: Yes Problems/Dx: (1) Ureter obstruction (2) Appendix carcinoma (3) Sepsis Status: Acute Qualifiers: Qualified Codes: A41.51 - Sepsis due to Escherichia coli [e. coli] (4) Urinary tract infection Status: Acute Qualifiers: Qualified Codes: N39.0 - Urinary tract infection, site not specified (5) Nausea & vomiting Status: Acute (6) Generalized weakness Status: Acute Hospital Course Date of Admission: Dec 23, 2020 at 17:47 Admission Diagnosis : Family Physician/Provider: No,Local Physician Date of Discharge: 12/26/20 Discharge Diagnosis: UTI, ureter obstruction with cancer, anemia Hospital Course: Uneventful course after admitted and placed on IVF and IV abx. Dr Escamilla consulted and she chose to delay stent placement which was scheduled for 12/28/20. Dr Sarabia consulted and no major changes in meds initiated. BCx from port returned with gram negative swapnil but repeat Cx negative so port did not have to be replaced as considered. Dr Pastrana consulted but no need for port change so he signed off. Abx maintained with IV Rocephin and changed to PO abx and will be monitored closely and have close f/u with PCP. Labs and Pending Lab Test: Laboratory Tests 12/25/20 11:14: Glucometer 84 12/26/20 04:59: White Blood Count 9.1, Red Blood Count 2.66L, Hemoglobin 8.2L, Hematocrit 26L, Mean Corpuscular Volume 98, Mean Corpuscular Hemoglobin 31, Mean Corpuscular Hemoglobin Concent 32, Red Cell Distribution Width 16.2H, Platelet Count 281, Mean Platelet Volume 9.1, Immature Granulocyte % (Auto) 2, Neutrophils (%) (Auto) 78H, Lymphocytes (%) (Auto) 9L, Monocytes (%) (Auto) 10, Eosinophils (%) (Auto) 1, Basophils (%) (Auto) 0, Neutrophils # (Auto) 7.2, Lymphocytes # (Auto) 0.8L, Monocytes # (Auto) 0.9, Eosinophils # (Auto) 0.1, Basophils # (Auto) 0.0, Immature Granulocyte # (Auto) 0.1, Sodium Level 137, Potassium Level 3.9, Chloride Level 102, Carbon Dioxide Level 26, Anion Gap 9, Blood Urea Nitrogen 7, Creatinine 0.64, Estimat Glomerular Filtration Rate > 60, BUN/Creatinine Ratio 11, Glucose Level 93, Calcium Level 8.0L, Corrected Calcium 9.1, Total Bilirubin 0.3, Aspartate Amino Transf (AST/SGOT) 17, Alanine Aminotransferase (ALT/SGPT) 16, Alkaline Phosphatase 57, Total Protein 5.9L, Albumin 2.6L Microbiology 12/23/20 Blood Culture - Preliminary, Resulted No growth Home Meds Active Reported Xarelto (Rivaroxaban) 10 Mg Tablet 10 Mg PO DAILY Ondansetron HCl 8 Mg Tablet 8 Mg PO Q8H PRN Oxycodone-Acetaminophen 5-325 (Oxycodone HCl/Acetaminophen) 1 Each Tablet 1 Ea PO Q4 -6H PRN Assessment/Pt Instructions PCP 1 week Discharge Planning: <30 minutes discharge planning Discharge Instructions Discharge Diet: No Restrictions Activity as Tolerated: Yes Discharge Physical Examination Vital Signs Vital Signs Date Time Temp Pulse Resp B/P (MAP) Pulse Ox O2 Delivery O2 Flow Rate FiO2 12/26/20 04:57 37.2 95 18 103/71 (82) 99 Room Air General Appearance: No Apparent Distress, WD/WN, Chronically ill Respiratory: Normal Breath Sounds Cardiovascular: Regular Rate, Rhythm Allergies: Coded Allergies: No Known Drug Allergies (Unverified , 12/12/18) Discharge Summary Date of Admission Dec 23, 2020 at 17:47 Date of Discharge Discharge Date: Dec 26, 2020 Admission Diagnosis Assessment: Sepsis Bacteremia UTI Obstruction of ureter needs stent Tuesday Discharge Diagnosis Assessment: Sepsis Bacteremia E. coli Appendix cancer on current treatment Anemia Port in place Plan: IV abx Monitor closely (1) Ureter obstruction (2) Appendix carcinoma (3) Sepsis Status: Acute Qualifiers: Qualified Codes: A41.51 - Sepsis due to Escherichia coli [e. coli] (4) Urinary tract infection Status: Acute Qualifiers: Qualified Codes: N39.0 - Urinary tract infection, site not specified (5) Nausea & vomiting Status: Acute (6) Generalized weakness Status: Acute ISMAEL WEAVER DO Dec 26, 2020 06:26
[2020-12-26 08:00] VITALS: BP 112/74
[2020-12-26] MEDS: SENNA W/DOCUSATE (SENOKOT S) TABLET PO SCH (08:45)
[2020-12-26] MEDS: oxyCODONE/APAP 5/325MG (PERCOCET 5) TABLET PO PRN (08:50)
[2020-12-26] MEDS: KCL 20 MEQ TAB (K-DUR) PO SCH (08:50)
[2020-12-26] MEDS ORDERED: ALPR.25T PO (12:11)
--- NOTE | 2020-12-26 13:44 | CONSULTATION REPORT ---
DATE OF SERVICE: 12/26/2020 ATTENDING PHYSICIAN: Dr. Elizondo. SUMMARY: A 64-year-old white lady was seen this week at the office because of the right ureteral obstruction secondary to calcified mass secondary to cancer of the appendix. She was scheduled to have attempted stent on this coming Tuesday. However, she has been admitted because of urinary tract infection and possible sepsis by Dr. Elizondo. Patient had called my office expressed the wish to postpone the surgery another week, which I think is not a big deal. Dr. Elizondo wants to talk to her today about proceeding for Tuesday and let me know the plan. I told the patient, she decided to postpone the surgery, we will give her some optional days and she will call my office with the day that is most appropriate for her. Job ID: [id number] DocumentID: [id number] Dictated Date: 12/26/2020 09:33:47 Exhibit Designer Date: 12/26/2020 13:43:50 Dictated By: LU GARCIA MD MTDD
[2020-12-26] MEDS ORDERED: TROUGH ORDER-PHARMACY XX NR (19:00)
== END 2020-12-26 12:40 | disposition home or self-care (01) | DRG 872 ==
LOC: EDUNIT# 16:31 → ER 16:32 → 4TH 17:47
PROVIDERS: ADMIT Internal Medicine; ATTEND Internal Medicine
DX: A41.51 Sepsis due to Escherichia coli [E. coli] (principal); N39.0 Urinary tract infection, site not specified; C18.1 Malignant neoplasm of appendix; Z20.822 Contact with and (suspected) exposure to COVID-19; Z90.49 Acquired absence of other specified parts of digestive tract; Z92.21 Personal history of antineoplastic chemotherapy; C26.0 Malignant neoplasm of intestinal tract, part unspecified; E87.6 Hypokalemia; R11.2 Nausea with vomiting, unspecified; N13.5 Crossing vessel and stricture of ureter without hydronephrosis; D64.9 Anemia, unspecified
CPT/HCPCS: 36415; 71045; 80048; 80053; 82962; 83540; 83605; 84145; 85025; 85610; 85730; 86141; 87040; 94760; 96374

== ENCOUNTER 2020-12-25 06:02 | Outpatient (CLI) | payer MEDICARE, OTHER ==
[~2020-12-25 06:02] MED LIST changes: +ONDA8TAB15 PO; +OXYC1TAB11 PO; +RIVA10TA PO
--- NOTE | 2020-12-25 16:03 | Oncology Consultation ---
Visit Information Visit Information Date of Admission Attending Physician Ck Escamilla MD Admitting Physician No,Local Physician Chief Complaint UTI, urethral obstruction. Interval History Ms. 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 She has been multiple lines of the chemotherapy and immunotherapy over the last 8 years. The most recent treatment was Lonsurf under his primary oncologist Dr Sarabia. She has not been feeling well over last 3-4 weeks with increasing abdominal pain, fatigue, and Lonsurf has been on hold. She presented to ER 12/24/2020 complaining general weakness, and UA showed UTI. Last CT scan 12-10-[address] of chest abd/pelvis 12-10-2020: 1. Decrease in size of multiple liver lesions when compared with exam from 01/28/2020. 2. Calcified mass in the right side of retroperitoneum again obstructing the right ureter. There is significant right-sided hydronephrosis. Mass does measure similar to perhaps slightly larger when compared with prior exam. No other new abnormality in the abdomen or pelvis is identified. I consulted the patient on: 12/25/20 15:50 Time Seen by Provider: 15:51 Review of Systems Constitutional: see HPI Health Status Allergies Coded Allergies: No Known Drug Allergies (Unverified , 12/12/18) Home Medications Ondansetron HCl (Ondansetron HCl) 8 Mg Tablet, 8 MG PO Q8H PRN for NAUSEA/VOMITING-1ST LINE, (Reported) Oxycodone HCl/Acetaminophen (Oxycodone-Acetaminophen 5-325) 1 Each Tablet, 1 EA PO Q4 -6H PRN for PAIN-MODERATE (5-7), (Reported) Rivaroxaban (Xarelto) 10 Mg Tablet, 10 MG PO DAILY, (Reported) YIN-Fzqdyo-Zwyfei Hx Patient Social History Recent Hopitalizations: No Physical Exam Vital Signs Capillary Refill : Height, Weight, BMI Height: '" Weight: lbs. oz. kg; 27.50 BMI Method: General Appearance: Chronically ill Impression & Plan Impression & Plan IMP: 1. Ecoli positive blood culture from the port and urine culture on 12/22/2020, suggesting E coli UTI and port related bacteremia. 2. 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 She has been multiple lines of the chemotherapy and immunotherapy over the last 8 years. The most recent treatment was Lonsurf under his primary oncologist Dr Sarabia. 3. Calcified mass in the right side of retroperitoneum obstructing the right ureter with significant right-sided hydronephrosis 4. Increasing abdominal pain, fatigue, despite the cancer treatment drug Lonsurf has been on hold. Plan: 1. Consult Dr Escamilla 2. Continue IV antibiotics 3. Hold off all the cancer treatment until the infection completely clears. 4. Dr Sarabia will be back tomorrow to discuss with patient about the future treatment options. MEGAN HUNT MD Dec 25, 2020 16:03
[2020-12-26] MEDS ORDERED: CEFD300C3 PO (06:26)
[2020-12-26] MEDS ORDERED: ALPR.25T PO (12:11)
== END 2020-12-25 15:00 | disposition home or self-care (01) ==
LOC: PREOP 06:02
PROVIDERS: ATTEND Urology
DX: Z01.818 Encounter for other preprocedural examination (principal)

== ENCOUNTER 2020-12-31 06:51 | Day surgery (SDC) | payer MEDICARE, OTHER ==
[~2020-12-31] VITALS: Ht 157 cm; Wt 68.1 kg
[2020-12-31] VITALS (10 sets, daily range): BP systolic 120–130; BP diastolic 66–88
[~2020-12-31 06:51] MED LIST changes: +ALPR.25T PO; +CEFD300C3 PO
[2020-12-31] MEDS ORDERED: cefTRIAXone FOR IV USE 1,000 MG in WATER (STERILE) FOR INJECTION 10 ML IV ONE (07:00)
[2020-12-31] MEDS ORDERED: LACTATED RINGERS 1,000 ML IV PRN (07:00)
[2020-12-31] MEDS ORDERED: fentaNYL INJ 100 MCG/2 ML AMP ONE (07:08)
[2020-12-31] MEDS ORDERED: SEVOFLURANE (ULTANE) 15 ML INHAL SOLN ONE ×4 (07:08→09:30)
[2020-12-31] MEDS ORDERED: ONDANSETRON 4 MG/2 ML (SDV) Z0FRAN ONE (07:08)
[2020-12-31] MEDS ORDERED: proPOfol 200 MG/20 ML (DIPRIVAN) VIAL IV ONE (07:08)
[2020-12-31] MEDS ORDERED: MIDAZOLAM 2 MG/2 ML (VERSED) VIAL ONE (07:08)
[2020-12-31] MEDS ORDERED: ROCURONIUM 10 MG/ML 5 ML SYRINGE IV ONE (07:08)
[2020-12-31] MEDS ORDERED: LIDOCAINE PF 2% 5 ML (XYLOCAINE) VIAL ONE (07:08)
--- NOTE | 2020-12-31 07:13 | Progress Note-Pre Operative ---
Pre-Operative Progress Note H&P Reviewed The H&P was reviewed, patient examined and no changes noted. Date Seen by Provider: Dec 31, 2020 Time Seen by Provider: 07:13 Date H&P Reviewed: Dec 31, 2020 Time H&P Reviewed: 07:13 Pre-Operative Diagnosis: RT URETERAL OBSTRUCTION LU GARCIA MD Dec 31, 2020 07:13
[2020-12-31] MEDS ORDERED: GLYCOPYRROLATE 0.2 MG/ML (ROBINUL) 2 ML VIAL ONE (08:21)
[2020-12-31] MEDS ORDERED: NEOSTIGMINE 3 MG/3 ML VIAL ONE (08:21)
--- NOTE | 2020-12-31 09:44 | Progress Note-Post Operative ---
Post-Operative Progess Note Surgeon (s)/Turn Down Attendant (s) Surgeon LU GARCIA MD Turn Down Attendant: NONE Pre-Operative Diagnosis RT URETERAL OBSTRUCTION Post-Operative Diagnosis SAME Procedure & Operative Findings Date of Procedure 12/31/20 Procedure Performed/Findings CYSTOSCOPY, RT RETROGRADE UROGRAM AND ATTEMPTED STENT Anesthesia Type GENERAL Estimated Blood Loss Estimated blood loss (mL): NONE Specimens/Packing Specimens Removed NONE Packing: NONE LU GARCIA MD Dec 31, 2020 09:44
--- NOTE | 2020-12-31 09:46 | Discharge Inst-Urology ---
Discharge Inst-Urology Reconcile Patient Problems Problems Reviewed?: Yes Final Diagnosis RT URETERAL OBSTRUCTION Patient Instructions/Follow Up Plan/Assessment/Instructions Please make appointment with Dr Sarabia this week. Increase oral fluids for 48 hours and then as needed. Diet and Activity as tolerated. If questions or concerns contact your physician Or seek help at emergency department. LU GARCIA MD Dec 31, 2020 09:45
[2020-12-31] MEDS ORDERED: HYDROmorphone 2 MG/ML VIAL (DILAUDID) IV ONE (10:00)
[2020-12-31] MEDS ORDERED: ONDANSETRON 4 MG/2 ML (SDV) Z0FRAN IVP PRN (10:00)
--- NOTE | 2020-12-31 12:07 | OPERATIVE REPORT ---
DATE OF SERVICE: 12/31/2020 PREOPERATIVE DIAGNOSIS: Right ureteral obstruction. POSTOPERATIVE DIAGNOSIS: Right ureteral obstruction. OPERATIONS PERFORMED: Cystoscopy, right retrograde urogram and attempted insertion of stent. SURGEON: Ck Garcia MD. ANESTHESIA: General. COMPLICATIONS: None. DESCRIPTION OF PROCEDURE: Under satisfactory general anesthesia and the patient in the lithotomy position, the genitalia were prepped and draped in the usual sterile fashion. Cystoscope was introduced under vision. The bladder was essentially normal except for a slightly sluggish efflux on the right side. Using the foroblique lens, I inserted a right ureteral catheter, injected contrast and visualizing a good segment of stricture in the proximal ureter and some dilatation of the pelvicaliceal system, not big though. After removing the ureteral catheter, there was good emptying of the ureter, but not the pelvicaliceal system. Using the foroblique lens, I attempted passing a 6-[place] 24 cm double-J stent, but could not go through the old strictured area. I attempted to pass a Glidewire and the stent, again was unable to do so. I discontinued further attempt in order not to cause any harm. There was no extravasation of the contrast. emptying the bladder, removed the cystoscope. The patient tolerated the procedure and anesthesia well and was sent to recovery room in a stable condition. PLAN: If we think indeed that her pain is coming from the right kidney obstruction, which may not be coming from it, but from other sources either from the mass on her back, then the recommendation would be to refer her to radiologist or urologist to perform a percutaneous nephrostomy tube with or without an antegrade insertion of a stent. We will have her check with Dr. Sarabia, her oncologist, to decide that. Job ID: [id number] DocumentID: [id number] Dictated Date: 12/31/2020 09:49:42 Optical Manager Date: 12/31/2020 12:05:48 Dictated By: CK GARCIA MD
== END 2020-12-31 11:50 | disposition home or self-care (01) ==
LOC: SDC 06:51
PROVIDERS: ATTEND Urology
DX: N13.5 Crossing vessel and stricture of ureter without hydronephrosis (principal); M41.9 Scoliosis, unspecified; R39.15 Urgency of urination; R32 Unspecified urinary incontinence; R35.1 Nocturia; K21.9 Gastro-esophageal reflux disease without esophagitis; Z90.710 Acquired absence of both cervix and uterus; Z79.899 Other long term (current) drug therapy; Z85.43 Personal history of malignant neoplasm of ovary; Z86.718 Personal history of other venous thrombosis and embolism; Z83.3 Family history of diabetes mellitus
CPT/HCPCS: 76000; 87081

== ENCOUNTER 2021-01-08 13:52 | Outpatient (RCR) | payer MEDICARE, OTHER ==
[2020-10-27 09:59] LABS: BASOPHILS % (AUTO) 0 % (0-10); EOSINOPHILS # (AUTO) 0.1 10^3/uL (0.0-0.3); EOSINOPHILS % (AUTO) 2 % (0-10); HEMATOCRIT 37 % (35-52); HEMOGLOBIN 11.9 g/dL (11.5-16.0); LYMPHOCYTES # (AUTO) 1.3 X 10^3 (1.0-4.0); LYMPHOCYTES % (AUTO) 30 % (12-44); MEAN CORPUSCULAR HEMOGLOBIN 32 pg (25-34); MEAN CORPUSCULAR HGB CONC 32 g/dL (32-36); MEAN CORPUSCULAR VOLUME 100 fL (80-99); MEAN PLATELET VOLUME 9.2 fL (9.0-12.2); MONOCYTES # (AUTO) 0.7 X 10^3 (0.0-1.0); MONOCYTES % (AUTO) 16 % (0-12); NEUTROPHILS # (AUTO) 2.3 X 10^3 (1.8-7.8); NEUTROPHILS % (AUTO) 52 % (42-75); PLATELET COUNT 215 10^3/uL (130-400); WHITE BLOOD COUNT 4.3 10^3/uL (4.3-11.0)
[2020-10-27 10:19] LABS: ALBUMIN 4.1 GM/DL (3.2-4.5); BILIRUBIN,TOTAL 0.4 MG/DL (0.1-1.0); CALCIUM 8.9 MG/DL (8.5-10.1); POTASSIUM 4.1 MMOL/L (3.6-5.0); TOTAL PROTEIN 7.1 GM/DL (6.4-8.2)
[2020-11-14 15:21] LABS: BASOPHILS % (AUTO) 0 % (0-10); EOSINOPHILS % (AUTO) 1 % (0-10); HEMATOCRIT 33 % (35-52); HEMOGLOBIN 10.9 g/dL (11.5-16.0); LYMPHOCYTES # (AUTO) 1.1 X 10^3 (1.0-4.0); LYMPHOCYTES % (AUTO) 28 % (12-44); MEAN CORPUSCULAR HEMOGLOBIN 33 pg (25-34); MEAN CORPUSCULAR HGB CONC 33 g/dL (32-36); MEAN CORPUSCULAR VOLUME 101 fL (80-99); MEAN PLATELET VOLUME 9.1 fL (9.0-12.2); MONOCYTES # (AUTO) 0.3 X 10^3 (0.0-1.0); MONOCYTES % (AUTO) 7 % (0-12); NEUTROPHILS # (AUTO) 2.6 X 10^3 (1.8-7.8); NEUTROPHILS % (AUTO) 63 % (42-75); PLATELET COUNT 175 10^3/uL (130-400); WHITE BLOOD COUNT 4.1 10^3/uL (4.3-11.0)
[2020-11-14 15:40] LABS: ALBUMIN 3.9 GM/DL (3.2-4.5); BILIRUBIN,TOTAL 0.4 MG/DL (0.1-1.0); CALCIUM 9.1 MG/DL (8.5-10.1); CREATININE SERUM 1.09 MG/DL (0.60-1.30); POTASSIUM 4.5 MMOL/L (3.6-5.0)
[2020-12-09 13:51] LABS: BASOPHILS % (AUTO) 0 % (0-10); EOSINOPHILS % (AUTO) 0 % (0-10); HEMATOCRIT 32 % (35-52); HEMOGLOBIN 10.2 g/dL (11.5-16.0); LYMPHOCYTES # (AUTO) 1.3 10^3/uL (1.0-4.0); LYMPHOCYTES % (AUTO) 10 % (12-44); MEAN CORPUSCULAR HEMOGLOBIN 32 pg (25-34); MEAN CORPUSCULAR HGB CONC 32 g/dL (32-36); MEAN CORPUSCULAR VOLUME 100 fL (80-99); MEAN PLATELET VOLUME 9.5 fL (9.0-12.2); MONOCYTES # (AUTO) 1.5 10^3/uL (0.0-1.0); MONOCYTES % (AUTO) 11 % (0-12); NEUTROPHILS # (AUTO) 10.1 10^3/uL (1.8-7.8); NEUTROPHILS % (AUTO) 77 % (42-75); PLATELET COUNT 279 10^3/uL (130-400); WHITE BLOOD COUNT 13.2 10^3/uL (4.3-11.0)
[2020-12-09 14:14] LABS: ALANINE AMINOTRANSFERASE 21 U/L (0-55); ALKALINE PHOSPHATASE 79 U/L (40-136); BILIRUBIN,TOTAL 0.3 MG/DL (0.1-1.0); BUN/CREATININE RATIO 13; CARBON DIOXIDE 22 MMOL/L (21-32); CHLORIDE 103 MMOL/L (98-107); CREATININE SERUM 0.84 MG/DL (0.60-1.30); GFR ESTIMATED > 60; GLUCOSE 95 MG/DL (70-105); POTASSIUM 4.5 MMOL/L (3.6-5.0); SODIUM 136 MMOL/L (135-145); TOTAL PROTEIN 7.1 GM/DL (6.4-8.2)
[2021-01-08 14:49] LABS: BASOPHILS % (AUTO) 0 % (0-10); EOSINOPHILS # (AUTO) 0.2 10^3/uL (0.0-0.3); EOSINOPHILS % (AUTO) 2 % (0-10); HEMATOCRIT 33 % (35-52); HEMOGLOBIN 10.1 g/dL (11.5-16.0); LYMPHOCYTES # (AUTO) 1.4 X 10^3 (1.0-4.0); LYMPHOCYTES % (AUTO) 22 % (12-44); MEAN CORPUSCULAR HEMOGLOBIN 30 pg (25-34); MEAN CORPUSCULAR HGB CONC 31 g/dL (32-36); MEAN CORPUSCULAR VOLUME 98 fL (80-99); MEAN PLATELET VOLUME 9.3 fL (9.0-12.2); MONOCYTES # (AUTO) 0.9 X 10^3 (0.0-1.0); MONOCYTES % (AUTO) 14 % (0-12); NEUTROPHILS # (AUTO) 3.9 X 10^3 (1.8-7.8); NEUTROPHILS % (AUTO) 59 % (42-75); PLATELET COUNT 336 10^3/uL (130-400); WHITE BLOOD COUNT 6.5 10^3/uL (4.3-11.0)
[2021-01-08 15:14] LABS: ALANINE AMINOTRANSFERASE 8 U/L (0-55); ALBUMIN 3.1 GM/DL (3.2-4.5); ALKALINE PHOSPHATASE 81 U/L (40-136); BILIRUBIN,TOTAL 0.3 MG/DL (0.1-1.0); BUN/CREATININE RATIO 12; CALCIUM 8.3 MG/DL (8.5-10.1); CARBON DIOXIDE 22 MMOL/L (21-32); CHLORIDE 102 MMOL/L (98-107); CREATININE SERUM 0.76 MG/DL (0.60-1.30); GFR ESTIMATED > 60; GLUCOSE 82 MG/DL (70-105); SODIUM 139 MMOL/L (135-145); TOTAL PROTEIN 7.1 GM/DL (6.4-8.2)
== END 2021-01-25 | disposition home or self-care (01) ==
LOC: ONC 13:52
PROVIDERS: ATTEND Internal Medicine Hematology & Oncology
DX: C18.1 Malignant neoplasm of appendix (principal); C78.6 Secondary malignant neoplasm of retroperitoneum and peritoneum; C79.61 Secondary malignant neoplasm of right ovary; Z86.718 Personal history of other venous thrombosis and embolism; Z86.711 Personal history of pulmonary embolism; Z92.21 Personal history of antineoplastic chemotherapy
CPT/HCPCS: 80053; 82378; 85025; G0463; 36591; 99213

== ENCOUNTER 2021-02-26 13:28 | Outpatient (RCR) | payer MEDICARE, OTHER ==
[2021-02-04 13:58] LABS: BASOPHILS % (AUTO) 0 % (0-10); EOSINOPHILS # (AUTO) 0.1 10^3/uL (0.0-0.3); EOSINOPHILS % (AUTO) 2 % (0-10); HEMATOCRIT 33 % (35-52); HEMOGLOBIN 10.2 g/dL (11.5-16.0); LYMPHOCYTES # (AUTO) 0.9 10^3/uL (1.0-4.0); LYMPHOCYTES % (AUTO) 22 % (12-44); MEAN CORPUSCULAR HEMOGLOBIN 32 pg (25-34); MEAN CORPUSCULAR HGB CONC 31 g/dL (32-36); MEAN CORPUSCULAR VOLUME 101 fL (80-99); MEAN PLATELET VOLUME 8.7 fL (9.0-12.2); MONOCYTES # (AUTO) 0.4 10^3/uL (0.0-1.0); MONOCYTES % (AUTO) 10 % (0-12); NEUTROPHILS # (AUTO) 2.7 10^3/uL (1.8-7.8); NEUTROPHILS % (AUTO) 65 % (42-75); PLATELET COUNT 200 10^3/uL (130-400); WHITE BLOOD COUNT 4.2 10^3/uL (4.3-11.0)
[2021-02-04 14:37] LABS: ALBUMIN 3.4 GM/DL (3.2-4.5); BILIRUBIN,TOTAL 0.5 MG/DL (0.1-1.0); CALCIUM 8.4 MG/DL (8.5-10.1); CREATININE SERUM 0.93 MG/DL (0.60-1.30); POTASSIUM 4.2 MMOL/L (3.6-5.0); TOTAL PROTEIN 6.5 GM/DL (6.4-8.2)
[2021-02-26 15:11] LABS: BASOPHILS % (AUTO) 0 % (0-10); EOSINOPHILS % (AUTO) 1 % (0-10); HEMATOCRIT 30 % (35-52); HEMOGLOBIN 9.7 g/dL (11.5-16.0); LYMPHOCYTES % (AUTO) 29 % (12-44); MEAN CORPUSCULAR HEMOGLOBIN 33 pg (25-34); MEAN CORPUSCULAR HGB CONC 32 g/dL (32-36); MEAN CORPUSCULAR VOLUME 102 fL (80-99); MEAN PLATELET VOLUME 8.8 fL (9.0-12.2); MONOCYTES # (AUTO) 0.3 X 10^3 (0.0-1.0); MONOCYTES % (AUTO) 8 % (0-12); NEUTROPHILS # (AUTO) 2.1 X 10^3 (1.8-7.8); NEUTROPHILS % (AUTO) 61 % (42-75); PLATELET COUNT 180 10^3/uL (130-400); WHITE BLOOD COUNT 3.4 10^3/uL (4.3-11.0)
[2021-02-26 15:32] LABS: ALANINE AMINOTRANSFERASE 9 U/L (0-55); ALBUMIN 3.8 GM/DL (3.2-4.5); ALKALINE PHOSPHATASE 52 U/L (40-136); BILIRUBIN,TOTAL 0.4 MG/DL (0.1-1.0); BUN/CREATININE RATIO 20; CALCIUM 9.1 MG/DL (8.5-10.1); CARBON DIOXIDE 27 MMOL/L (21-32); CHLORIDE 106 MMOL/L (98-107); CREATININE SERUM 0.79 MG/DL (0.60-1.30); GFR ESTIMATED > 60; GLUCOSE 115 MG/DL (70-105); POTASSIUM 3.7 MMOL/L (3.6-5.0); SODIUM 140 MMOL/L (135-145); TOTAL PROTEIN 6.9 GM/DL (6.4-8.2)
== END 2021-05-05 | disposition home or self-care (01) ==
LOC: ONC 13:28
PROVIDERS: ATTEND Internal Medicine Hematology & Oncology
DX: C18.1 Malignant neoplasm of appendix (principal); C78.6 Secondary malignant neoplasm of retroperitoneum and peritoneum; C79.62 Secondary malignant neoplasm of left ovary; C79.61 Secondary malignant neoplasm of right ovary; G89.3 Neoplasm related pain (acute) (chronic); Z86.718 Personal history of other venous thrombosis and embolism; Z86.711 Personal history of pulmonary embolism; Z92.21 Personal history of antineoplastic chemotherapy; Z79.01 Long term (current) use of anticoagulants
CPT/HCPCS: 80053; 82378; 85025; G0463; 36591